=== PATIENT | male | born 1965 | race Caucasian/White ===

== ENCOUNTER 2016-10-20 | Emergency (ER) | payer SELFPAY ==
--- NOTE | 2016-10-20 09:02 | ED ---
ENT HPI - General Chief complaint: ENT Stated complaint: FACIAL INFECTION Time Seen by Provider: 10/20/16 08:34 Source: patient, RN notes reviewed Mode of arrival: ambulatory Limitations: no limitations - History of Present Illness Initial comments: Patient is a 51-year-old male presents to the emergency room for evaluation of left-sided facial edema. Patient states he has a history of left-sided sinusitis. Patient states he has followed up with the ear, nose and throat specialist in this area and in [place]. 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 Patient states this feels like his normal flare up of sinusitis. Patient also complaining of left upper dental pain, which is normal when this happens. Patient denies any recent trauma to his teeth. Patient states he follows up with a dentist regularly. Patient states his symptoms began last night and got worse this morning. Patient denies any fevers. Patient denies shortness of breath. Patient does state he has b/l sinus congestion. Patient denies throat pain, ear pain, headache, cough, abdominal pain, nausea, vomiting. Patient denies any changes in vision. Patient denies ringing ears. Patient states he is usually placed on Levaquin and prednisone. - Related Data Home Medications Medication Instructions Recorded Confirmed Gabapentin [Neurontin] 1 tab PO DIRECTED 03/30/16 10/20/16 Previous Rx's Medication Instructions Recorded Levofloxacin [Levaquin] 500 mg PO DAILY 7 Days 10/20/16 predniSONE 50 mg PO DAILY #5 tab 10/20/16 Allergies Allergy/AdvReac Type Severity Reaction Status Date / Time No Known Allergies Allergy Verified 10/20/16 08:23 Review of Systems ROS Statement: Those systems with pertinent positive or pertinent negative responses have been documented in the HPI. ROS Other: All systems not noted in ROS Statement are negative. Past Medical History Additional Past Medical History / Comment(s): sinus infection, chronic back pain History of Any Multi-Drug Resistant Organisms: None Reported Past Surgical History: Back Surgery Past Psychological History: No Psychological Hx Reported Smoking Status: Never smoker Past Alcohol Use History: None Reported Past Drug Use History: None Reported General Exam - General Exam Comments Initial Comments: Sitting in exam room in no acute distress. Limitations: no limitations General appearance: alert, in no apparent distress Head exam: Present: atraumatic, normocephalic, normal inspection Eye exam: Present: normal appearance ENT exam: Present: other (left sided facial edema, pain on palpating over left maxilary sinus) Neck exam: Present: normal inspection, full ROM. Absent: tenderness, lymphadenopathy Respiratory exam: Present: normal lung sounds bilaterally. Absent: respiratory distress Cardiovascular Exam: Present: regular rate, normal rhythm, normal heart sounds Extremities exam: Present: normal inspection Back exam: Present: normal inspection Neurological exam: Present: alert, oriented X3, CN II-XII intact, normal gait Psychiatric exam: Present: normal affect, normal mood Skin exam: Present: warm, dry, intact, normal color. Absent: rash Course Vital Signs 10/20/16 08:19 Temperature 98.3 F Pulse Rate 73 Respiratory 20 Rate Blood Pressure 149/90 O2 Sat by Pulse 98 Oximetry Medical Decision Making - Medical Decision Making Patient is a 51-year-old male presents emergency room for evaluation of left sided facial edema. Patient states this consistent with his normal flare up of sinusitis. Will place patient on Levaquin and prednisone and have him follow- up with his ear, nose and throat specialist on Saturday or primary care provider. Patient states he understands everything that was discussed with him. Return parameters discussed. Case discussed discussed with Dr. Lang. Disposition Clinical Impression: Maxillary sinusitis Disposition: HOME SELF-CARE Condition: Good Instructions: Sinusitis (ED) Additional Instructions: Take medications as directed. Please follow up with ear, nose and throat specialist or primary care provider in 24-48 hours. If any new symptom arises, symptoms worsen or fever develops, return to ER as soon as possible. Prescriptions: Levofloxacin [Levaquin] 500 mg PO DAILY 7 Days predniSONE 50 mg PO DAILY #5 tab Referrals: Wesley Tovar MD [Primary Care Provider] - 1-2 days Time of Disposition: 08:58
== END 2016-10-20 09:22 | disposition home or self-care (01) ==
CPT/HCPCS: 99283

== ENCOUNTER 2016-11-05 06:53 | Emergency (ER) | payer SELFPAY ==
[2016-11-05 06:58] VITALS: BP 161/85; PULSE 70; RESP 18; TEMP 97.9
--- NOTE | 2016-11-05 07:46 | ED ---
General Adult HPI - General Chief complaint: Skin/Abscess/Foreign Body Stated complaint: sinus infection Time Seen by Provider: 11/05/16 07:20 Source: patient, RN notes reviewed Mode of arrival: ambulatory Limitations: no limitations - History of Present Illness Initial comments: Patient is a pleasant 51-year-old male presenting to the emergency department complaining of sinus discomfort. Symptoms started bothering him a couple of days ago. Patient has chronic frequent problems. Patient usually needs antibiotics for this. Patient states he did feel some swelling in the left sinus region earlier today. Patient does not feel this is from his teeth. Patient has seen ENT for this previously. Patient states he has been off work since Saturday and needs a work note since that time. Patient also requests steroid prescription. - Related Data Home Medications Medication Instructions Recorded Confirmed Ascorbic Acid [Vitamin C] 500 mg PO DAILY 11/05/16 11/05/16 Gabapentin [Neurontin] 300 mg PO TID 11/05/16 11/05/16 Multivitamin [Men's Multi-Vitamin] 1 tab PO DAILY 11/05/16 11/05/16 Naproxen Sodium [Aleve] 440 mg PO Q12HR PRN 11/05/16 11/05/16 Niacin 500 mg PO DAILY 11/05/16 11/05/16 Tadalafil [Cialis] 2.5 mg PO DAILY PRN 11/05/16 11/05/16 Vitamin B Complex 1 cap PO DAILY 11/05/16 11/05/16 Vitamin E 100 unit PO DAILY 11/05/16 11/05/16 amLODIPine BESYLATE [Norvasc] 5 mg PO DAILY 11/05/16 11/05/16 Previous Rx's Medication Instructions Recorded Amoxic-Pot Clav 875-125Mg 1 tab PO Q12HR #20 tablet 11/05/16 [Augmentin 875-125] predniSONE 20 mg PO BID #8 tab 11/05/16 Allergies Allergy/AdvReac Type Severity Reaction Status Date / Time lisinopril AdvReac Swelling Verified 11/05/16 07:26 Review of Systems ROS Statement: Those systems with pertinent positive or pertinent negative responses have been documented in the HPI. ROS Other: All systems not noted in ROS Statement are negative. Constitutional: Denies: fever Eyes: Denies: eye pain ENT: Reports: congestion. Denies: ear pain Respiratory: Reports: cough Cardiovascular: Denies: chest pain Endocrine: Denies: fatigue Gastrointestinal: Denies: abdominal pain Genitourinary: Denies: dysuria Musculoskeletal: Denies: back pain Skin: Denies: rash Neurological: Denies: weakness Past Medical History Additional Past Medical History / Comment(s): sinus infection, chronic back pain History of Any Multi-Drug Resistant Organisms: None Reported Past Surgical History: Back Surgery Additional Past Surgical History / Comment(s): ENT Past Psychological History: No Psychological Hx Reported Smoking Status: Never smoker Past Alcohol Use History: None Reported Past Drug Use History: None Reported General Exam Limitations: no limitations General appearance: alert, in no apparent distress Head exam: Present: atraumatic Eye exam: Present: normal appearance, PERRL ENT exam: Present: normal oropharynx, other (No signs of dental abscess) Neck exam: Present: normal inspection, tenderness (Mild tenderness left sinus region) Respiratory exam: Present: normal lung sounds bilaterally Cardiovascular Exam: Present: regular rate, normal rhythm GI/Abdominal exam: Present: soft. Absent: tenderness Extremities exam: Present: normal inspection Neurological exam: Present: alert, CN II-XII intact. Absent: motor sensory deficit Psychiatric exam: Present: normal affect, normal mood Skin exam: Absent: rash Course Vital Signs 11/05/16 06:54 Temperature 97.9 F Pulse Rate 70 Respiratory 18 Rate Blood Pressure 161/85 O2 Sat by Pulse 97 Oximetry Disposition Clinical Impression: Maxillary sinusitis Disposition: HOME SELF-CARE Condition: Stable Instructions: Sinusitis (ED) Additional Instructions: Please follow-up with primary care physician in the next day or 2 for recheck. Please also follow-up with your ENT. Return for increased swelling, redness, fevers, worsening symptoms or other concerns. Prescriptions: Amoxic-Pot Clav 875-125Mg [Augmentin 875-125] 1 tab PO Q12HR #20 tablet predniSONE 20 mg PO BID #8 tab Referrals: Wesley Tovar MD [Primary Care Provider] - 1-2 days
== END 2016-11-05 07:54 | disposition home or self-care (01) ==
LOC: EC 06:53
DX: J32.0 Chronic maxillary sinusitis (principal); Z79.899 Other long term (current) drug therapy; Z88.8 Allergy status to other drugs, medicaments and biological substances
CPT/HCPCS: 99283

== ENCOUNTER 2017-08-07 17:05 | Emergency (ER) | payer OTHER ==
[2017-08-07 18:21] VITALS: TEMP 97.5
[2017-08-07] MEDS ORDERED: RX INFO: IV CONTRAST WAS GIVEN 1 EACH MISC MISCELLANE PRN (18:45)
[2017-08-07] MEDS ORDERED: ACETAMINOPHEN TAB 325 MG TAB PO STA (18:47)
[2017-08-07 19:17] LABS: Basophils # (A) 0.1 k/uL (0-0.2); Basophils % (A) 1 %; CH 31.2; Eosinophils # (A) 0.1 k/uL (0-0.7); Eosinophils % (A) 1 %; HCT 46.1 % (39.0-53.0); HDW 2.39; HGB 15.6 gm/dL (13.0-17.5); Luc # (Auto) 0.14; Luc % (Auto) 1; Lymphocytes # (A) 2.2 k/uL (1.0-4.8); Lymphocytes % (A) 20 %; MCH 30.4 pg (25.0-35.0); MCHC 33.9 g/dL (31.0-37.0); MCV 89.7 fL (80.0-100.0); Monocytes # (A) 0.5 k/uL (0-1.0); Monocytes % (A) 5 %; Neutrophils # (A) 8.1 k/uL (1.3-7.7); Neutrophils % (A) 73 %; RBC 5.14 m/uL (4.30-5.90); RDW 13.6 % (11.5-15.5); WBC 11.1 k/uL (3.8-10.6); WBC (Perox) 11.02
[2017-08-07 19:19] LABS: Amorphous Sediment,Urine Occasional /hpf; Appearance,Urine Cloudy (Clear); Bilirubin,Urine Negative (Negative); Glucose,Urine (UA) Negative (Negative); Ketones,Urine Negative (Negative); Leukocyte Esterase,Urine Negative (Negative); Mucus,Urine Rare /hpf; Nitrite,Urine Negative (Negative); PH, Urine 6.5 (5.0-8.0); Particle Count 2644; Protein,Urine Negative (Negative); RBC,Urine 1 /hpf (0-5); Specific Gravity,Urine 1.015 (1.001-1.035); Squamous Epithelial Cell,Urine <1 /hpf (0-4); UA Billing (MACRO vs. MICRO) MICRO; Urobilinogen,Urine <2.0 mg/dL (<2.0); WBC,Urine 1 /hpf (0-5)
[2017-08-07 19:27] LABS: ALT 28 U/L (21-72); AST 36 U/L (17-59); Alkaline Phosphatase 83 U/L (38-126); Anion Gap 10 mmol/L; Blood Urea Nitrogen 18 mg/dL (9-20); Calcium 9.3 mg/dL (8.4-10.2); Carbon Dioxide 24 mmol/L (22-30); Chloride 107 mmol/L (98-107); Creatine Kinase 259 U/L (55-170); Glucose 85 mg/dL (74-99); Non-African American GFR(MDRD) >60 (>60 ml/min/1.73 sqM); Potassium 4.1 mmol/L (3.5-5.1); Sodium 141 mmol/L (137-145); Total Bilirubin 0.2 mg/dL (0.2-1.3); Total Protein 7.4 g/dL (6.3-8.2)
--- NOTE | 2017-08-07 19:28 | XR ---
EXAMINATION TYPE: XR knee complete RT DATE OF EXAM: 08/07/2017 COMPARISON: NONE HISTORY: Pain TECHNIQUE: 3 views FINDINGS: I see no fracture nor dislocation. Joint spaces are normal. There is no sign of knee joint effusion. IMPRESSION: Negative right knee exam
--- NOTE | 2017-08-07 19:28 | XR ---
EXAMINATION TYPE: XR Hip RT and AP Pelvis DATE OF EXAM: 08/07/2017 COMPARISON: NONE HISTORY: Pain TECHNIQUE: A single AP view of the pelvis is obtained. Two views of the right hip are obtained. FINDINGS: The pelvic ring is intact. Proximal right femur and hip joint are intact. Sacroiliac joint s are normal. CONCLUSION: Negative pelvis and right hip exam.
[2017-08-07 19:45] VITALS: BP 132/85; PULSE 62; RESP 18
--- NOTE | 2017-08-07 19:54 | CT ---
EXAMINATION TYPE: CT abdomen pelvis w con DATE OF EXAM: 08/07/2017 COMPARISON: NONE HISTORY: Abdominal pain CT DLP: mGycm Automated exposure control for dose reduction was used. TECHNIQUE: Helical acquisition of images was performed from the lung bases through the pelvis. CONTRAST: Omnipaque 100 mL. FINDINGS: There is mild subsegmental atelectasis at the lung bases. There is no pleural effusion. Liver spleen pancreas gallbladder appear normal. Bile ducts are not dilated. There is no adrenal mass. Kidneys have normal size and contour. There is no hydronephrosis. There is no retroperitoneal adenopathy. There is no ascites. Bladder distends smoothly. I see no intestinal wa ll thickening. There are no dilated loops. Appendix appears normal. There is metal artifact from lumb ar spine surgery. I see no compression fracture. There is no evidence of a fracture. IMPRESSION: MILD SUBSEGMENTAL ATELECTASIS AT THE LUNG BASES. NO FRACTURE. NO ACUTE ABNORMALITY OF THE ABDOMEN AND PELVIS.
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
== END 2017-08-07 20:17 | disposition home or self-care (01) ==
LOC: EC 17:05
DX: S80.01XA Contusion of right knee, initial encounter (principal); F17.200 Nicotine dependence, unspecified, uncomplicated; Z79.899 Other long term (current) drug therapy; Z88.8 Allergy status to other drugs, medicaments and biological substances; V03.00XA Pedestrian on foot injured in collision with car, pick-up truck or van in nontraffic accident, initial encounter; Y92.410 Unspecified street and highway as the place of occurrence of the external cause
CPT/HCPCS: 36415; 80053; 82550; 85025; 81001; 73502; 73562; 74177; 99284; Q9967

== ENCOUNTER → 2019-01-28 | Outpatient (CLI) | payer OTHER ==
[2019-01-28 10:04] LABS: Basophils % (A) 1 %; Eosinophils # (A) 0.1 k/uL (0-0.7); Eosinophils % (A) 1 %; HCT 50.1 % (39.0-53.0); HGB 16.4 gm/dL (13.0-17.5); Lymphocytes # (A) 1.8 k/uL (1.0-4.8); Lymphocytes % (A) 25 %; MCH 30.9 pg (25.0-35.0); MCHC 32.8 g/dL (31.0-37.0); MCV 94.2 fL (80.0-100.0); Mean Platelet Volume 6.3; Monocytes # (A) 0.6 k/uL (0-1.0); Monocytes % (A) 8 %; Neutrophils # (A) 4.5 k/uL (1.3-7.7); Neutrophils % (A) 63 %; Platelet Count 314 k/uL (150-450); RBC 5.32 m/uL (4.30-5.90); RDW 13.3 % (11.5-15.5); WBC 7.2 k/uL (3.8-10.6)
[2019-01-28 10:09] LABS: Partial Thromboplastin Time 27.3 sec (22.0-30.0); Prothrombin Time 10.5 sec (9.0-12.0)
[2019-01-28 10:14] LABS: Appearance,Urine Clear (Clear); Bilirubin,Urine Negative (Negative); Blood,Urine Negative (Negative); Color,Urine Yellow; Glucose,Urine (UA) Negative (Negative); Ketones,Urine Negative (Negative); Leukocyte Esterase,Urine Negative (Negative); Nitrite,Urine Negative (Negative); Protein,Urine Negative (Negative); Specific Gravity,Urine 1.012 (1.001-1.035); Urobilinogen,Urine <2.0 mg/dL (<2.0)
[2019-01-28 10:24] LABS: Anion Gap 9 mmol/L; Blood Urea Nitrogen 15 mg/dL (9-20); Calcium 9.6 mg/dL (8.4-10.2); Carbon Dioxide 30 mmol/L (22-30); Chloride 101 mmol/L (98-107); Glucose 90 mg/dL (74-99); Potassium 4.6 mmol/L (3.5-5.1); Sodium 140 mmol/L (137-145)
--- NOTE | 2019-01-28 11:40 | XR ---
EXAMINATION TYPE: XR chest 2V DATE OF EXAM: 01/28/2019 HISTORY: Shortness of breath. COMPARISON: 07/07/2014 TECHNIQUE: Single view of the chest is submitted. FINDINGS: Demonstrated are scattered senescent parenchymal change. There is no evidence for focal infiltrate. The heart is stable. Hilar and mediastinal structures are within normal limits. Degenerative changes are seen of the dorsal spine. IMPRESSION: 1. Chronic changes without evidence for acute pulmonary disease.
== END | disposition home or self-care (01) ==
LOC: LABWHC1 08:42
PROVIDERS: ATTEND Orthopaedic Surgery Orthopaedic Surgery of the Spine
DX: Z01.818 Encounter for other preprocedural examination (principal); Z01.812 Encounter for preprocedural laboratory examination; J98.4 Other disorders of lung; M43.10 Spondylolisthesis, site unspecified
CPT/HCPCS: 36415; 71046; 80048; 81003; 85025; 85610; 85730; 87070

== ENCOUNTER 2019-02-04 08:14 | Inpatient (IN) | payer OTHER ==
[~2019-02-04 08:14] MED LIST: BACITRACIN 50,000 UNIT, POLYMYXIN B 500,000 UNIT in SODIUM CHLORIDE 0.9% IRRIGATIO 1,00... IRRIGATION ONE; DEXAMETHASONE SOD PHOSPHATE 10 MG/ML 1 ML VIAL IV ONE; LIDOCAINE 1% 20 ML VIAL (10MG/ML) FOR IV START INTRADERMA PRN; MIDAZOLAM (PF) 2 MG/2 ML VIAL IV PRN; ONDANSETRON 4 MG/2 ML VIAL IVP ONE; SCOPOLAMINE 1.5MG/72HR PATCH TRANSDERM ONE; ceFAZolin IN SWFI 2 GM/20 ML SYRINGE IVP ONE
[2019-02-04] MEDS: LACTATED RINGERS 1,000 ML IV SCH (09:19)
[2019-02-04] MEDS ORDERED: MIDAZOLAM 2 MG/2 ML VIAL ONE (10:23)
[2019-02-04] MEDS ORDERED: PROPOFOL 10 MG/ML 20 ML VIAL IV ONE (10:23)
[2019-02-04] MEDS ORDERED: DEXAMETHASONE SOD PHOS (MDV) 100 MG/10 ML VIAL ONE (10:23)
[2019-02-04] MEDS ORDERED: ROCURONIUM BROMIDE 10 MG/ML 10 ML VIAL IV ONE (10:23)
[2019-02-04] MEDS ORDERED: KETAMINE 10 MG/ML 20 ML VIAL ONE (10:23)
[2019-02-04] MEDS ORDERED: LIDOCAINE 1% INJ 10MG/ML (20 ML MDV) ONE (10:23)
[2019-02-04] MEDS ORDERED: SUCCINYLCHOLINE CHLORIDE 100 MG/5 ML SYR IV ONE (10:23)
[2019-02-04] MEDS ORDERED: HYDROmorphone (PF) 1 MG/ML ONE (10:23)
[2019-02-04] MEDS ORDERED: fentaNYL (PF) 50 MCG/ML 2 ML AMP ONE (10:23)
[2019-02-04] MEDS ORDERED: GELATIN SPONGE,ABSORB (LARGE) 1 EACH SPONGE MISCELLANE ONE (10:47)
[2019-02-04] MEDS ORDERED: THROMBIN (BOVINE) 5,000 UNIT VIAL MISCELLANE ONE (10:47)
[2019-02-04] MEDS ORDERED: LACTATED RINGERS 1,000 ML IV ONE ×2 (11:00→13:53)
[2019-02-04] MEDS ORDERED: BUPIVACAINE-EPI 0.5%-1:200,000 10 ML VIAL SQ ONE (11:04)
[2019-02-04] MEDS: BACITRACIN 50,000 UNIT, POLYMYXIN B 500,000 UNIT in SODIUM CHLORIDE 0.9% IRRIGATIO 1,00... IRRIGATION ONE ×2 (13:07→13:22)
[2019-02-04] MEDS ORDERED: NALOXONE 0.4 MG/ML 1 ML VIAL IV PRN (14:47)
[2019-02-04] MEDS ORDERED: ONDANSETRON 4 MG/2 ML VIAL IVP PRN (14:47)
[2019-02-04] MEDS ORDERED: MAGNESIUM HYDROXIDE 2,400 MG/10 ML CUP PO PRN (14:47)
[2019-02-04] MEDS ORDERED: BENZOCAINE/MENTHOL LOZENG 1 EACH LOZENGE MUCOUS MEM PRN (14:47)
[2019-02-04] MEDS ORDERED: HYDROcodone/APAP 5-325MG 1 EACH TAB PO PRN ×2 (14:47)
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
[2019-02-04] MEDS ORDERED: PHYSOSTIGMINE SALICYLATE 1 MG/ML 2 ML AMP IVP ONE (15:05)
[2019-02-04] MEDS: HYDROmorphone 0.5 MG/0.5 ML SYRINGE IVP PRN ×6 (15:11→16:15)
--- NOTE | 2019-02-04 15:26 | XR ---
EXAMINATION TYPE: XR lumbar spine 2 or 3V, FL guidance operating room DATE OF EXAM: 02/04/2019 COMPARISON: NONE HISTORY: 53-year-old male hardware placement lumbar spine FINDINGS: Imaging during extension of posterior and interbody lumbar fusion up to the L2 level. FLUOROSCOPY Fluoroscopy time of 13 seconds was used during posterior and interbody lumbar fusion. 2 image/s docu ment/s the procedure. IMPRESSION: Fluoroscopy of the above.
[2019-02-04] MEDS ORDERED: hydrALAZINE HCL 20 MG/ML 1 ML VIAL IV ONE (15:56)
[2019-02-04] MEDS: SODIUM CHLORIDE 0.9% 1,000 ML IV SCH (16:34)
[2019-02-04] MEDS: HYDROmorphone 1 MG/ML 1 ML SYRINGE IVP PRN (17:15)
[2019-02-04] MEDS: HYDROMORPHONE (PF) 10 MG in SODIUM CHLORIDE 0.9% 49 ML IV PRN (17:17)
[2019-02-04] MEDS: ceFAZolin IN SWFI 2 GM/20 ML SYRINGE IVP SCH (17:25)
--- NOTE | 2019-02-04 17:28 | P.CONS ---
History of Present Illness - Reason for Consult Consult date: 02/04/19 Medical management Requesting physician: Miriam Vanegas - Chief Complaint Lower back pain - History of Present Illness 53-year-old male with PMH of spondylolisthesis, spinal stenosis, history of prior decompression and fusion of the L3 4 L4 5 presents to [facility] for elective surgery. Patient was seen and examined after OR. Patient reports 10 out of 10 excruciating lower back pain at the site of surgery. Pain radiates to bilateral knees. He denies any bladder or bowel incontinence, saddle anesthesia. Patient reports no urination or bowel movements since surgery. Not passing gas at this time. Requesting IV pain medication as there is some difficulty with the pain pump. Patient denies any headache, nausea, vomiting, fever, cough, chest pain, palpitations, shortness of breath, dizziness, numbness/weakness/tingling of the extremities. Review of Systems Pertinent positives and negatives as discussed in HPI, a complete review of systems was performed and all other systems are negative. Past Medical History Additional Past Medical History / Comment(s): CHRONIC sinus infectionS, chronic back pain History of Any Multi-Drug Resistant Organisms: None Reported Past Surgical History: Back Surgery Additional Past Surgical History / Comment(s): BACK SX X 2. EYE SX 1984 Past Anesthesia/Blood Transfusion Reactions: No Reported Reaction Smoking Status: Former smoker - Past Family History Mother Family Medical History: No Reported History Medications and Allergies Home Medications Medication Instructions Recorded Confirmed Type Gabapentin [Neurontin] 300 mg PO TID 11/05/16 02/04/19 History Allergies Allergy/AdvReac Type Severity Reaction Status Date / Time lisinopril AdvReac Swelling Verified 02/04/19 15:44 Physical Exam Vitals: Vital Signs Temp Pulse Pulse Resp BP Pulse Ox 02/04/19 16:15 86 18 97 02/04/19 16:00 76 18 176/104 98 02/04/19 15:45 69 16 184/102 95 02/04/19 15:30 62 16 169/109 96 02/04/19 15:15 72 16 170/92 97 02/04/19 15:01 97.8 F 80 15 158/98 100 02/04/19 09:37 72 16 140/78 95 02/04/19 08:55 97.8 F 74 16 140/93 98 Intake and Output 02/04/19 02/04/19 02/04/19 06:59 14:59 22:59 Intake Total 2402 500 Output Total 540 Balance 1862 500 Intake: IV 2402 500 Output: Urine 140 Estimated Blood Loss 400 General: [non toxic], [acute distress], [appears at stated age] Derm: [warm], [dry] Head: [atraumatic], [normocephalic], [symmetric] Eyes: [EOMI], [no lid lag], [anicteric sclera] Mouth: [no lip lesion], [mucus membranes moist] Cardiovascular: [S1S2 reg], [no murmur], [positive DP pulse bilateral] Lungs: [CTA bilateral], [no rhonchi, no rales] , [no accessory muscle use] Abdominal: [soft], [ nontender to palpation], [no guarding], [no appreciable organomegaly] Ext: [no gross muscle atrophy], [no edema], [no contractures] Neuro: [Unable to check strength of bilateral lower extremity due to pain. Sensation intact to touch.] Psych: [Alert], [oriented], [appropriate affect] Assessment and Plan Assessment: Assessment and Plan Elevated BP Spondylolithiasis, spinal stenosis with history of prior decompression and fusion status post laminectomy and decompression POD 0 BP 176/104. Previously on lisinopril. Plan: Insure adequate pain control. Monitor vitals, adjust medications as necessary. Plan: Cefazolin 2 doses. One time dose of dexamethasone. Pain management with Dilaudid AUTOMOTIVE UPHOLSTERER pump. Continue [place] and Dilaudid as needed for pain management. Continue gabapentin. Weightbearing as per orthopedic recommendations. Follow PT and OT recommendations. Thank you for this consult. Please call with any additional questions.
[2019-02-04 17:51] VITALS: BMI 26.1
[2019-02-04] MEDS: GABAPENTIN 300 MG CAP PO SCH ×2 (17:57→21:58)
[2019-02-04] MEDS: DIAZEPAM 5 MG TAB PO PRN (19:47)
[2019-02-05] MEDS: ceFAZolin IN SWFI 2 GM/20 ML SYRINGE IVP SCH (01:11)
[2019-02-05] MEDS: HYDROMORPHONE (PF) 10 MG in SODIUM CHLORIDE 0.9% 49 ML IV PRN ×2 (01:58→13:14)
[2019-02-05] MEDS: DIAZEPAM 5 MG TAB PO PRN ×3 (04:02→21:02)
[2019-02-05 08:33] LABS: Basophils % (A) 0 %; Eosinophils % (A) 0 %; HGB 14.8 gm/dL (13.0-17.5); Lymphocytes # (A) 1.5 k/uL (1.0-4.8); Lymphocytes % (A) 10 %; MCV 93.9 fL (80.0-100.0); Mean Platelet Volume 6.5; Monocytes % (A) 7 %; Neutrophils # (A) 11.6 k/uL (1.3-7.7); Neutrophils % (A) 81 %; Platelet Count 314 k/uL (150-450); RBC 4.79 m/uL (4.30-5.90); RDW 13.4 % (11.5-15.5); WBC 14.2 k/uL (3.8-10.6)
[2019-02-05] MEDS: LACTATED RINGERS 1,000 ML IV SCH (08:39)
[2019-02-05 09:02] LABS: Anion Gap 6 mmol/L; Blood Urea Nitrogen 14 mg/dL (9-20); Calcium 8.5 mg/dL (8.4-10.2); Carbon Dioxide 28 mmol/L (22-30); Chloride 104 mmol/L (98-107); Glucose 82 mg/dL (74-99); Potassium 4.2 mmol/L (3.5-5.1); Sodium 138 mmol/L (137-145)
[2019-02-05] MEDS: GABAPENTIN 300 MG CAP PO SCH ×3 (09:48→21:02)
[2019-02-05] MEDS: SODIUM CHLORIDE 0.9% 1,000 ML IV SCH (09:48)
[2019-02-05] MEDS: SENNOSIDES-DOCUSATE SODIUM 1 EACH TAB PO SCH (09:48)
[2019-02-05] MEDS: HYDROcodone/APAP 5-325MG 1 EACH TAB PO PRN ×3 (09:53→21:41)
--- NOTE | 2019-02-05 11:52 | P.PN ---
Progress Note - Text Progress Note Date: 02/05/19 Orthopedic Spine Patient is a pleasant 53-year-old male who is seen and examined at the bedside following posterior lateral decompression and fusion performed yesterday. Patient states they are doing well postsurgically. He has been able to get out of bed multiple times and ambulate to the restroom to void. He has some difficulty with getting in and out of bed. His back pain is better controlled while standing. He feels his right lower extremity leg pain has improved but does have some exacerbation while lying in bed. He continues to use PATIENT RELATIONS COORDINATOR and oral [place] for pain control. He has been avoiding Dilaudid IV push for pain control. He has had difficulty with sleeping. Currently does not complain of nausea, vomiting, fever, or chills. Patient states pain has been adequately controlled. Patient is eating and voiding freely without difficulty. His Hemovac drain remains intact. Physical Exam Lumbar Fusion: Status post surgical day number 1 Patient is awake, alert, and oriented 3 Vital signs stable Good chest excursion with deep inspiration and expiration Dorsiflexion, plantarflexion, and extensor hallucis longus positive sustained bilaterally No signs or symptoms of DVT; no calf pain; pneumatic cuffs not currently intact bilateral lower extremities Dressing is clean, dry, and intact; no erythema, purulence, or signs of infection Hemovac drain well secure Neurovascularly intact bilaterally lower extremities Assessment: L2-3 open posterior lateral decompression and fusion with transforaminal lumbar interbody fusion with hardware extension to previous fusion at L3-4 and L4-5 Low back pain Right lower extremity radiculopathy L2-3 spondylolisthesis L2-3 adjacent level degenerative disc disease History of previous posterior lateral decompression and fusion L3-4 and L4-5 with transforaminal lumbar interbody fusion History of hypertension Plan: 1. Ambulate as tolerated; work with Physical Therapy to increase mobilization 2. Continue pain control with IV and oral medications; we will continue to avoid IV Dilaudid push and we'll continue with weaning of the PATIENT RELATIONS COORDINATOR in anticipation for discharge home in the next couple days 3. Dressing to remain intact until tomorrow at which time we will plan to discontinue the Hemovac drain and change dressing to nonstick Telfa and Tegaderm 4. Medical management can continue to manage patient for patient's other medical issues 5. We will continue to follow the patient closely; if the patient is able to continue increasing mobility and pain is able to be controlled with oral medications we will plan for discharge home over the next 1-2 days 6. Patient can follow-up with Nic Briones PA-C or Dr. Michael Vanegas at [facility] in 2-3 weeks following discharge
--- NOTE | 2019-02-05 13:14 | P.PN ---
Subjective Progress Note Date: 02/05/19 Principal diagnosis: Post laminectomy and spinal fusion Patient was seen and examined. No acute events overnight. POD 1 today. Patient reports significant improvement in his back pain since starting BRIDGE LEVERMAN pump. He denies chest pain, shortness of breath or palpitations. Ambulating well. Objective - Vital Signs Vital signs: Vital Signs Temp 97.7 F 02/05/19 07:00 Pulse 71 02/05/19 07:00 Resp 18 02/05/19 07:00 BP 121/67 02/05/19 07:00 Pulse Ox 97 02/05/19 07:00 Intake & Output 02/04/19 02/05/19 02/05/19 18:59 06:59 18:59 Intake Total 2902 2570 Output Total 540 460 30 Balance 2362 2110 -30 Intake: IV 2902 Intake, IV Titration 1020 Amount Hydromorphone (Pf) 10 mg 45 In Sodium Chloride 0.9% 49 ml @ As Directed IV PER PROTOCOL PRN Rx#: [id number] Sodium Chloride 0.9% 1, 975 000 ml @ 75 mls/hr IV . [id number] [facility] Rx#:[id number] Oral 1550 Output: Drainage 20 30 Back 20 30 Urine 140 440 Estimated Blood Loss 400 Other: Voiding Method Toilet Toilet Urinal Urinal # Voids 4 - Exam General: [non toxic], [no distress], [appears at stated age] Derm: [warm], [dry] Head: [atraumatic], [normocephalic], [symmetric] Eyes: [EOMI], [no lid lag], [anicteric sclera] Mouth: [no lip lesion], [mucus membranes moist] Cardiovascular: [S1S2 reg], [no murmur], [positive DP pulse bilateral] Lungs: [CTA bilateral], [no rhonchi, no rales] , [no accessory muscle use] Abdominal: [soft], [ nontender to palpation], [no guarding], [no appreciable organomegaly] Ext: [no gross muscle atrophy], [no edema], [no contractures] Neuro: [no focal neuro deficits] Psych: [Alert], [oriented], [appropriate affect] - Labs CBC & Chem 7: 02/05/19 07:30 02/05/19 07:30 Labs: Abnormal Lab Results - Last 24 Hours (Table) 02/05/19 Range/Units 07:30 WBC 14.2 H (3.8-10.6) k/uL Neutrophils # 11.6 H (1.3-7.7) k/uL Assessment and Plan Assessment: Assessment and Plan Elevated BP Leukocytosis Spondylolithiasis, spinal stenosis with history of prior decompression and fusi on status post laminectomy and decompression POD 1 Improved today. BP 176/104. Previously on lisinopril. Plan: Insure adequate pain control. Monitor vitals, adjust medications as necessary. Leukocytosis of 14.2 with neutrophilia. Patient is afebrile. Given cefazolin 2 doses. No signs of infection. Plan: Continue to monitor. Daily CBC. Plan: Cefazolin 2 doses. One time dose of dexamethasone. Pain management with Dilaudid BRIDGE LEVERMAN pump. Continue [place] and Dilaudid as needed for pain management. Continue gabapentin. Weightbearing as per orthopedic recommendations. Follow PT and OT recommendations. Thank you for this consult. Please call with any additional questions.
[2019-02-06 01:43] VITALS: RESP 16
[2019-02-06] MEDS: HYDROMORPHONE (PF) 10 MG in SODIUM CHLORIDE 0.9% 49 ML IV PRN (02:36)
[2019-02-06] MEDS: HYDROcodone/APAP 5-325MG 1 EACH TAB PO PRN ×4 (02:36→20:11)
[2019-02-06] MEDS: DIAZEPAM 5 MG TAB PO PRN ×3 (05:46→22:24)
[2019-02-06] MEDS: LACTATED RINGERS 1,000 ML IV SCH (08:09)
[2019-02-06] MEDS: SODIUM CHLORIDE 0.9% 1,000 ML IV SCH (08:09)
--- NOTE | 2019-02-06 08:33 | P.PN ---
Progress Note - Text Progress Note Date: 02/06/19 Orthopedic Spine: Patient is a pleasant 53-year-old male who is seen and examined at the bedside following posterior lateral decompression and fusion performed Saturday. Patient states he continues to do well and improve postsurgically. He has been able to get out of bed multiple times and ambulate to the restroom to void. He has some difficulty with getting in and out of bed. His back pain is better controlled while standing. He feels his right lower extremity leg pain has continued to improve improved but does have some exacerbation while lying in bed which she feels may be related to muscle. He continues to use SENIOR RESEARCH CONSULTANT and oral [place] for pain control but has been starting to wean off the SENIOR RESEARCH CONSULTANT. He has been avoiding Dilaudid IV push for pain control. Currently does not complain of nausea, vomiting, fever, or chills. Patient states pain has been adequately controlled. Patient is eating and voiding freely without difficulty. His Hemovac drain has been discontinued. He is very happy with his progress postoperatively. He continues to be seen by medicine. He was having increased blood pressure readings yesterday which have improved Physical Exam Lumbar Fusion: Status post surgical day number 2 Patient is awake, alert, and oriented 3 Vital signs stable Good chest excursion with deep inspiration and expiration Dorsiflexion, plantarflexion, and extensor hallucis longus positive sustained bilaterally No signs or symptoms of DVT; no calf pain; pneumatic cuffs not currently intact bilateral lower extremities Dressing is clean, dry, and intact; no erythema, purulence, or signs of infection Hemovac drain previously discontinued Dressing is removed and reapplied with nonstick Telfa and Tegaderm No active drainage from the surgical site No significant pain with palpation over the surgical site Neurovascularly intact bilaterally lower extremities Assessment: L2-3 open posterior lateral decompression and fusion with transforaminal lumbar interbody fusion with hardware extension to previous fusion at L3-4 and L4-5 Low back pain Right lower extremity radiculopathy L2-3 spondylolisthesis L2-3 adjacent level degenerative disc disease History of previous posterior lateral decompression and fusion L3-4 and L4-5 with transforaminal lumbar interbody fusion History of hypertension Plan: 1. Ambulate as tolerated; work with Physical Therapy to increase mobilization 2. Continue pain control with IV and oral medications; we will continue to avoid IV Dilaudid push and will continue with weaning of the SENIOR RESEARCH CONSULTANT in anticipation for discharge home tomorrow, 02/07/2019 MAPS has been reviewed today, 02/06/2019, with an Overall Overdose Risk Score of 120 with a narcotic score of 60. An "Opiod Start Talking" Forn has been signed by the patient and myself in place in the patient's chart. A prescription has been written for [place] 7.5 mg/25 mg take 1-2 tabs every 4 hours as needed for pain, dispensed #84. 3. Dressing has been removed and changed to nonstick Telfa and Tegaderm 4. Medical management can continue to manage patient for patient's other medical issues 5. We will continue to follow the patient closely; if the patient is able to continue increasing mobility and pain is able to be controlled with oral medications we will plan for discharge home tomorrow, 02/07/2019 6. Patient can follow-up with Nic Briones PA-C or Dr. Michael Vanegas at [facility] in 2-3 weeks following discharge
[2019-02-06] MEDS: GABAPENTIN 300 MG CAP PO SCH ×3 (10:01→22:24)
[2019-02-06] MEDS: SENNOSIDES-DOCUSATE SODIUM 1 EACH TAB PO SCH (10:02)
--- NOTE | 2019-02-06 15:21 | P.PN ---
Subjective Progress Note Date: 02/06/19 Principal diagnosis: Status post laminectomy and spinal fusion 53-year-old male postop day 2 status post laminectomy and spinal fusion ambulating with PERSONAL DEVELOPMENT MENTOR pump states this pain is about a 5 out of 10 Objective - Vital Signs Vital signs: Vital Signs Temp 98.5 F 02/06/19 07:00 Pulse 83 02/06/19 08:00 Resp 16 02/06/19 08:00 BP 144/92 02/06/19 07:00 Pulse Ox 97 02/06/19 07:00 Intake & Output 02/05/19 02/06/19 02/06/19 18:59 06:59 18:59 Intake Total 1435 Output Total 75 Balance -75 1435 Intake: Intake, IV Titration 285 Amount Hydromorphone (Pf) 10 mg 45 In Sodium Chloride 0.9% 49 ml @ As Directed IV PER PROTOCOL PRN Rx#: [id number] Sodium Chloride 0.9% 1, 240 000 ml @ 75 mls/hr IV . [id number] REJI Rx#:[id number] Oral 1150 Output: Drainage 75 Back 75 Other: Voiding Method Toilet Toilet Toilet Urinal Urinal Urinal # Voids 4 3 - Constitutional General appearance: Present: no acute distress - Respiratory Respiratory: bilateral: CTA - Cardiovascular Rhythm: regular - Gastrointestinal General gastrointestinal: Present: normal bowel sounds, soft - Integumentary Integumentary Comment(s): Incision dressed clean dry and intact Integumentary: Present: normal turgor - Musculoskeletal Musculoskeletal: Present: strength equal bilaterally - Psychiatric Psychiatric: Present: A&O x's 3, appropriate affect - Labs CBC & Chem 7: 02/05/19 07:30 02/05/19 07:30 Assessment and Plan Assessment: Leukocytosis Hypertension Back pain Plan: Blood pressure better controlled today, currently stable on PERSONAL DEVELOPMENT MENTOR pump continue pain management per primary, monitor for side effects of Dilaudid, check CBC in a.m.,
[2019-02-06] MEDS: HYDROmorphone 0.5 MG/0.5 ML SYRINGE IVP PRN ×2 (16:38→20:11)
[2019-02-06] MEDS: HYDROmorphone 1 MG/ML 1 ML SYRINGE IVP PRN (23:37)
[2019-02-07] MEDS: HYDROcodone/APAP 5-325MG 1 EACH TAB PO PRN ×2 (02:21→09:43)
[2019-02-07] MEDS: HYDROmorphone 1 MG/ML 1 ML SYRINGE IVP PRN (03:50)
[2019-02-07] MEDS: DIAZEPAM 5 MG TAB PO PRN (07:01)
[2019-02-07] MEDS: GABAPENTIN 300 MG CAP PO SCH (07:01)
[2019-02-07] MEDS: SENNOSIDES-DOCUSATE SODIUM 1 EACH TAB PO SCH (07:01)
[2019-02-07 07:41] VITALS: BP 163/96; PULSE 82; TEMP 98.6
[2019-02-07 07:44] LABS: Basophils # (A) 0.1 k/uL (0-0.2); Basophils % (A) 0 %; Eosinophils # (A) 0.1 k/uL (0-0.7); Eosinophils % (A) 1 %; HCT 48.2 % (39.0-53.0); HGB 15.7 gm/dL (13.0-17.5); Lymphocytes # (A) 1.8 k/uL (1.0-4.8); Lymphocytes % (A) 14 %; MCH 30.8 pg (25.0-35.0); MCHC 32.6 g/dL (31.0-37.0); MCV 94.6 fL (80.0-100.0); Monocytes # (A) 0.8 k/uL (0-1.0); Monocytes % (A) 6 %; Neutrophils # (A) 9.5 k/uL (1.3-7.7); Neutrophils % (A) 77 %; Platelet Count 343 k/uL (150-450); RBC 5.09 m/uL (4.30-5.90); RDW 13.2 % (11.5-15.5); WBC 12.4 k/uL (3.8-10.6)
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
[2019-02-07] MEDS: HYDROmorphone 0.5 MG/0.5 ML SYRINGE IVP PRN (08:21)
--- NOTE | 2019-02-07 10:11 | P.PN ---
Subjective Progress Note Date: 02/07/19 Principal diagnosis: back pain Patient is a 54-year-old male past medical history of chronic low back pain, hypertension currently diet controlled, and chronic sinus infections who presented for elective decompression and fusion of L2/3 of the extension of fusion at L2-3. He tolerated the procedure well. Patient seen and examined at bedside. His pain is well controlled. He has been up and ambulating. He is not having any chest pain or shortness of breath. He has had a bowel movement. All questions answered. He is aware that nurse practitioner Tyra Martínez is available [facility]. Information is in place to discharge. Objective - Vital Signs Vital signs: Vital Signs Temp 98.6 F 02/07/19 07:15 Pulse 82 02/07/19 07:15 Resp 16 02/07/19 07:15 BP 163/96 02/07/19 07:15 Pulse Ox 96 02/07/19 07:15 Intake & Output 02/06/19 02/07/19 02/07/19 18:59 06:59 18:59 Intake Total 0 480 Balance 0 480 Intake: Intake, IV Titration 0 Amount Sodium Chloride 0.9% 1, 0 000 ml @ 75 mls/hr IV . [id number] REJI Rx#:[id number] Oral 480 Other: Voiding Method Toilet Toilet Urinal Urinal # Voids 3 3 - Exam General: non toxic, no distress, appears at stated age Derm: warm, dry Head: atraumatic, normocephalic, symmetric Eyes: EOMI, no lid lag, anicteric sclera Mouth: no lip lesion, mucus membranes moist Cardiovascular: S1S2 reg, no murmur, positive posterior tibial pulse bilateral, Lungs: CTA bilateral, no rhonchi, no rales , no accessory muscle use Abdominal: soft, nontender to palpation, no guarding, no appreciable organomegaly Ext: no gross muscle atrophy, no edema, no contractures Neuro: CN II-XI grossly intact, no focal neuro deficits Psych: Alert, oriented, appropriate affect - Labs CBC & Chem 7: 02/07/19 06:52 02/05/19 07:30 Labs: Abnormal Lab Results - Last 24 Hours (Table) 02/07/19 Range/Units 06:52 WBC 12.4 H (3.8-10.6) k/uL Neutrophils # 9.5 H (1.3-7.7) k/uL Assessment and Plan Assessment: HTN - controlled with life style at home - follow BP - improving control Chronic low back pain, s/p Fusion - pain control - PT/OT - increase ambulation Leukocytosis, reactive - decreasing - no need to follow Medically stable for discharge when deemed appropriate per ortho/spine.
== END 2019-02-07 10:30 | disposition home or self-care (01) | DRG 455 ==
LOC: 2ORMAIN 08:14 → 4SSUR 15:48
PROVIDERS: ADMIT Orthopaedic Surgery Orthopaedic Surgery of the Spine; ATTEND Orthopaedic Surgery Orthopaedic Surgery of the Spine
PROC: 0SG0071 Fusion of Lumbar Vertebral Joint with Autologous Tissue Substitute, Posterior Approach, Posterior Column, Open Approach (ICD-10-PCS; 2019-02-04)
PROC: 0ST20ZZ Resection of Lumbar Vertebral Disc, Open Approach (ICD-10-PCS; 2019-02-04)
PROC: 07DS3ZZ Extraction of Vertebral Bone Marrow, Percutaneous Approach (ICD-10-PCS; 2019-02-04)
PROC: 30233N0 Transfusion of Autologous Red Blood Cells into Peripheral Vein, Percutaneous Approach (ICD-10-PCS; 2019-02-04)
PROC: 0SG00AJ Fusion of Lumbar Vertebral Joint with Interbody Fusion Device, Posterior Approach, Anterior Column, Open Approach (ICD-10-PCS; principal; 2019-02-04 09:45)
DX: M43.16 Spondylolisthesis, lumbar region (principal); M51.16 Intervertebral disc disorders with radiculopathy, lumbar region; M48.061 Spinal stenosis, lumbar region without neurogenic claudication; M46.1 Sacroiliitis, not elsewhere classified; I10 Essential (primary) hypertension; Z98.1 Arthrodesis status; Z79.899 Other long term (current) drug therapy; Z82.49 Family history of ischemic heart disease and other diseases of the circulatory system; Z87.891 Personal history of nicotine dependence; Z88.8 Allergy status to other drugs, medicaments and biological substances
CPT/HCPCS: 72100; 80048; 85025; 86850; 86900; 86901

== ENCOUNTER 2019-08-05 23:00 | Emergency (ER) | payer OTHER ==
[2019-08-05] MEDS ORDERED: KETOROLAC 30 MG/ML 1 ML VIAL IM STA (23:33)
[2019-08-05] MEDS ORDERED: AMOXIC-POT CLAV 875MG STARTER 2 EACH TABLET PO STA (23:33)
[2019-08-05] MEDS ORDERED: predniSONE 50 MG TAB PO STA (23:33)
--- NOTE | 2019-08-05 23:35 | ED ---
General Adult HPI - General Chief complaint: Skin/Abscess/Foreign Body Stated complaint: Abscess Time Seen by Provider: 08/05/19 23:18 Source: patient, RN notes reviewed Mode of arrival: ambulatory Limitations: no limitations - History of Present Illness Initial comments: 54-year-old male with chronic sinus infections, chronic back pain presents to the emergency department for a chief complaint of abscess of the left lower jaw. Patient states this started earlier today. States he gets abscesses like this often and it is secondary to his chronic sinus infections. Denies fevers or chills. Denies any dental pain. Patient has no other complaints at this time including shortness of breath, chest pain, abdominal pain, nausea or vomiting, headache, or visual changes. - Related Data Home Medications Medication Instructions Recorded Confirmed Gabapentin [Neurontin] 300 mg PO TID 11/05/16 02/04/19 Previous Rx's Medication Instructions Recorded HYDROcodone/APAP 7.5-325MG [[place] 1 - 2 tab PO Q4HR PRN 7 Days #84 02/06/19 7.5-325] tab Amoxicillin/Potassium Clav 1 tab PO Q12HR #20 tab 08/05/19 [Augmentin 875-125 Tablet] predniSONE 50 mg PO DAILY #4 tab 08/05/19 Allergies Allergy/AdvReac Type Severity Reaction Status Date / Time lisinopril AdvReac Swelling Verified 08/05/19 23:15 Review of Systems ROS Statement: Those systems with pertinent positive or pertinent negative responses have been documented in the HPI. ROS Other: All systems not noted in ROS Statement are negative. Past Medical History Additional Past Medical History / Comment(s): CHRONIC sinus infectionS, chronic back pain History of Any Multi-Drug Resistant Organisms: None Reported Past Surgical History: Back Surgery, Orthopedic Surgery Additional Past Surgical History / Comment(s): BACK SX X 2. EYE SX 1984 Past Anesthesia/Blood Transfusion Reactions: No Reported Reaction Past Psychological History: No Psychological Hx Reported Smoking Status: Former smoker Past Alcohol Use History: None Reported Past Drug Use History: Marijuana - Past Family History Mother Family Medical History: No Reported History General Exam Limitations: no limitations General appearance: alert, in no apparent distress Head exam: Present: atraumatic, normocephalic, normal inspection Eye exam: Present: normal appearance, PERRL, EOMI. Absent: scleral icterus, conjunctival injection, periorbital swelling ENT exam: Present: normal exam, normal oropharynx, mucous membranes moist, TM's normal bilaterally, normal external ear exam, other (Patient has induration about 1 cm by 1 cm noted on the left lower mandible. There is no tenderness to the teeth. There is no drainable dental abscess. No sublingual edema) Neck exam: Present: normal inspection, full ROM. Absent: tenderness, meningismus, lymphadenopathy Respiratory exam: Present: normal lung sounds bilaterally. Absent: respiratory distress, wheezes, rales, rhonchi, stridor Cardiovascular Exam: Present: regular rate, normal rhythm, normal heart sounds. Absent: systolic murmur, diastolic murmur, rubs, gallop, clicks Neurological exam: Present: alert Course Vital Signs 08/05/19 23:12 Temperature 98.2 F Pulse Rate 72 Respiratory 20 Rate Blood Pressure 135/78 O2 Sat by Pulse 97 Oximetry Medical Decision Making - Medical Decision Making Patient presents with induation of the left lower jaw. This is about 1 cm x 1 cm and is mobile. Slightly tender. No erythema. This is likely dental in nature nature however no drainable intraoral abscess. She insists that this is related to chronic sinus infections that he gets similar abscesses often. States he has seen a dentist in the seated is not dental. Patient states he needs antibiotics and is also requesting steroids. Patient will follow up with primary care as well as dentist. He will return if he has any worsening symptoms. Disposition Clinical Impression: Abscess Disposition: HOME SELF-CARE Condition: Good Instructions (If sedation given, give patient instructions): Abscess (ED) Additional Instructions: Please follow up with primary care as well as dentist. Take antibiotic and steroid as directed. This was prescribed to Ayad murcia [employer]. Return to the emergency department if you have any worsening symptoms. Prescriptions: Amoxicillin/Potassium Clav [Augmentin 875-125 Tablet] 1 tab PO Q12HR #20 tab predniSONE 50 mg PO DAILY #4 tab Is patient prescribed a controlled substance at d/c from ED?: No Referrals: Wesley Tovar MD [Primary Care Provider] - 1-2 days Time of Disposition: 23:34
[2019-08-05 23:57] VITALS: BP 136/95; PULSE 67; RESP 18; TEMP 97.6
== END 2019-08-05 23:53 | disposition home or self-care (01) ==
LOC: EC 23:00
DX: M27.2 Inflammatory conditions of jaws (principal); Z79.899 Other long term (current) drug therapy; Z88.8 Allergy status to other drugs, medicaments and biological substances; Z87.891 Personal history of nicotine dependence
CPT/HCPCS: 99282; 96372; J1885; J7512

== ENCOUNTER 2020-04-23 03:15 | Observation (INO) | payer BC, OTHER ==
[2020-04-23] MEDS ORDERED: SODIUM CHLORIDE 0.9% 500 ML 500 ML IV STA (03:34)
[2020-04-23] MEDS ORDERED: DILTIAZEM DRIP BOLUS FROM BAG 1 MG SOLN IV ONE (03:34)
[2020-04-23] MEDS ORDERED: ENOXAPARIN 100 MG/ML SYRINGE SQ STA (03:34)
[2020-04-23] MEDS ORDERED: LORazepam 2 MG/ML INJ IV STA (03:35)
--- NOTE | 2020-04-23 03:40 | ED ---
Arrhythmia/Palpitations HPI - General Chief Complaint: Arrhythmia/Palpitations Stated Complaint: AFib Time Seen by Provider: 04/23/20 03:28 Source: patient Mode of arrival: ambulatory Limitations: no limitations - History of Present Illness Initial Comments: This patient is a 55-year-old man with history of previous paroxysmal atrial fibrillation approximately year and half ago, who states that he woke up to use the bathroom around 2 AM and noticed he was having similar symptoms. He states that he felt his heart beating rapidly and little bit irregularly. He states that he used his apple watch to monitor things and when it did not resolve he decided to present here. He feels a little anxious. He denies other symptoms. Patient denies any predisposing factors, including no alcohol or caffeine use. No street drug use. He states that he has been under little stress recently. MD Complaint: rapid heart beat Onset/Timin -: minutes(s) Context: awoke with symptoms Arrhythmia History: atrial fibrillation Associated Symptoms: anxiety - Related Data Home Medications Medication Instructions Recorded Confirmed Gabapentin [Neurontin] 600 mg PO BID 11/05/16 04/23/20 Previous Rx's Medication Instructions Recorded Apixaban [Eliquis] 5 mg PO BID tab 04/23/20 Aspirin 81 mg PO DAILY chew 04/23/20 Flecainide [Tambocor] 100 mg PO Q12HR #60 tablet 04/23/20 Metoprolol Tartrate [Lopressor] 25 mg PO BID #60 tablet 04/23/20 Allergies Allergy/AdvReac Type Severity Reaction Status Date / Time lisinopril AdvReac Swelling Verified 04/23/20 07:15 Review of Systems ROS Statement: Those systems with pertinent positive or pertinent negative responses have been documented in the HPI. ROS Other: All systems not noted in ROS Statement are negative. Constitutional: Denies: fever, chills Respiratory: Denies: cough, dyspnea Cardiovascular: Reports: palpitations. Denies: chest pain, orthopnea, edema, syncope Gastrointestinal: Denies: abdominal pain, nausea, vomiting, melena, hematochezia Genitourinary: Denies: dysuria, frequency Musculoskeletal: Denies: back pain Skin: Denies: rash Neurological: Denies: headache, weakness, numbness Psychiatric: Reports: anxiety Hematological/Lymphatic: Denies: easy bleeding Past Medical History Past Medical History: Atrial Fibrillation Additional Past Medical History / Comment(s): CHRONIC sinus infectionS, chronic back pain History of Any Multi-Drug Resistant Organisms: None Reported Past Surgical History: Back Surgery, Orthopedic Surgery Additional Past Surgical History / Comment(s): BACK SX X 2. EYE SX 1984 Past Anesthesia/Blood Transfusion Reactions: No Reported Reaction Past Psychological History: No Psychological Hx Reported Past Alcohol Use History: None Reported Past Drug Use History: Marijuana - Past Family History Mother Family Medical History: No Reported History General Exam Limitations: no limitations General appearance: alert, in no apparent distress Head exam: Present: atraumatic, normocephalic Eye exam: Present: normal appearance. Absent: scleral icterus, conjunctival injection ENT exam: Present: normal oropharynx Neck exam: Present: normal inspection Respiratory exam: Present: normal lung sounds bilaterally. Absent: respiratory distress, wheezes, rales, rhonchi, stridor Cardiovascular Exam: Present: tachycardia, irregular rhythm, normal heart sounds. Absent: systolic murmur, diastolic murmur, rubs, gallop GI/Abdominal exam: Present: soft. Absent: distended, tenderness, guarding, rebound, rigid, mass Extremities exam: Present: normal inspection, normal capillary refill. Absent: pedal edema, calf tenderness Back exam: Present: normal inspection Neurological exam: Present: alert Psychiatric exam: Present: anxious Skin exam: Present: warm, dry, intact, normal color. Absent: rash Course Vital Signs 04/23/20 04/23/20 04/23/20 03:21 03:25 03:59 Temperature 97.8 F Pulse Rate 154 H 105 H Pulse Rate [ 151 H Gas Plant Repairer ] Respiratory 18 16 Rate Blood Pressure 185/112 135/111 O2 Sat by Pulse 97 98 Oximetry 04/23/20 04/23/20 04/23/20 04:05 04:10 04:15 Temperature Pulse Rate 133 H 118 H 105 H Pulse Rate [ Gas Plant Repairer ] Respiratory 16 16 16 Rate Blood Pressure 119/93 119/96 107/83 O2 Sat by Pulse 98 97 96 Oximetry 04/23/20 04/23/20 04/23/20 04:53 05:00 06:00 Temperature Pulse Rate 76 86 84 Pulse Rate [ Gas Plant Repairer ] Respiratory 16 16 16 Rate Blood Pressure 115/91 110/89 129/90 O2 Sat by Pulse 99 97 Oximetry 04/23/20 07:36 Temperature 97.8 F Pulse Rate 78 Pulse Rate [ Gas Plant Repairer ] Respiratory 18 Rate Blood Pressure 108/87 O2 Sat by Pulse 97 Oximetry EKG Findings - EKG Results: EKG: interpreted by CHRISTOPHER, normal axis - Dysrhythmias: Supraventricular dysrhythmia: atrial fibrillation (Was rate approximately 139 bpm) - Blocks, [place], Hypertrophy, ST Abn: Chamber hypertrophy or enlargement: only voltage criteria for left ventricular hypertrophy Repolarization changes or abnormalities: nonspecific abnormality, ST segment, an d/or T wave Medical Decision Making - Lab Data Result diagrams: 04/23/20 03:37 04/23/20 03:37 Lab Results 04/23/20 04/23/20 04/23/20 Range/Units 03:37 03:37 03:37 WBC 11.6 H (3.8-10.6) k/uL RBC 5.65 (4.30-5.90) m/uL Hgb 18.0 H (13.0-17.5) gm/dL Hct 53.8 H (39.0-53.0) % MCV 95.2 (80.0-100.0) fL MCH 31.9 (25.0-35.0) pg MCHC 33.5 (31.0-37.0) g/dL RDW 13.1 (11.5-15.5) % Plt Count 324 (150-450) k/uL Neutrophils % 61 % Lymphocytes % 25 % Monocytes % 7 % Eosinophils % 4 % Basophils % 1 % Neutrophils # 7.1 (1.3-7.7) k/uL Lymphocytes # 3.0 (1.0-4.8) k/uL Monocytes # 0.9 (0-1.0) k/uL Eosinophils # 0.4 (0-0.7) k/uL Basophils # 0.1 (0-0.2) k/uL PT 11.2 (9.0-12.0) sec INR 1.1 (<1.2) APTT 26.5 (22.0-30.0) sec Sodium 138 (137-145) mmol/L Potassium 4.2 (3.5-5.1) mmol/L Chloride 103 (98-107) mmol/L Carbon Dioxide 26 (22-30) mmol/L Anion Gap 9 mmol/L BUN 17 (9-20) mg/dL Creatinine 0.86 (0.66-1.25) mg/dL Est GFR (CKD-EPI)AfAm >90 (>60 ml/min/1.73 sqM) Est GFR (CKD-EPI)NonAf >90 (>60 ml/min/1.73 sqM) Glucose 171 H (74-99) mg/dL Estimated Ave Glu mg/dL Hemoglobin A1c (4.0-6.0) % Calcium 9.4 (8.4-10.2) mg/dL Magnesium 1.8 (1.6-2.3) mg/dL Total Bilirubin 0.6 (0.2-1.3) mg/dL AST 47 (17-59) U/L ALT 14 (4-49) U/L Alkaline Phosphatase 87 (38-126) U/L Troponin I (0.000-0.034) ng/mL Total Protein 7.4 (6.3-8.2) g/dL Albumin 4.6 (3.5-5.0) g/dL Triglycerides (<150) mg/dL Cholesterol (<200) mg/dL LDL Cholesterol, Calc (0-99) mg/dL HDL Cholesterol (40-60) mg/dL TSH 4.150 (0.465-4.680) mIU/L 04/23/20 04/23/20 04/23/20 Range/Units 03:37 03:37 03:37 WBC (3.8-10.6) k/uL RBC (4.30-5.90) m/uL Hgb (13.0-17.5) gm/dL Hct (39.0-53.0) % MCV (80.0-100.0) fL MCH (25.0-35.0) pg MCHC (31.0-37.0) g/dL RDW (11.5-15.5) % Plt Count (150-450) k/uL Neutrophils % % Lymphocytes % % Monocytes % % Eosinophils % % Basophils % % Neutrophils # (1.3-7.7) k/uL Lymphocytes # (1.0-4.8) k/uL Monocytes # (0-1.0) k/uL Eosinophils # (0-0.7) k/uL Basophils # (0-0.2) k/uL PT (9.0-12.0) sec INR (<1.2) APTT (22.0-30.0) sec Sodium (137-145) mmol/L Potassium (3.5-5.1) mmol/L Chloride (98-107) mmol/L Carbon Dioxide (22-30) mmol/L Anion Gap mmol/L BUN (9-20) mg/dL Creatinine (0.66-1.25) mg/dL Est GFR (CKD-EPI)AfAm (>60 ml/min/1.73 sqM) Est GFR (CKD-EPI)NonAf (>60 ml/min/1.73 sqM) Glucose (74-99) mg/dL Estimated Ave Glu mg/dL 111 Hemoglobin A1c 5.5 (4.0-6.0) % Calcium (8.4-10.2) mg/dL Magnesium (1.6-2.3) mg/dL Total Bilirubin (0.2-1.3) mg/dL AST (17-59) U/L ALT (4-49) U/L Alkaline Phosphatase (38-126) U/L Troponin I <0.012 (0.000-0.034) ng/mL Total Protein (6.3-8.2) g/dL Albumin (3.5-5.0) g/dL Triglycerides 113 (<150) mg/dL Cholesterol 184 (<200) mg/dL LDL Cholesterol, Calc 125 H (0-99) mg/dL HDL Cholesterol 36 L (40-60) mg/dL TSH (0.465-4.680) mIU/L Critical Care Time Critical Care Time: Yes (35 minutes) Disposition Clinical Impression: Atrial fibrillation Disposition: ADMITTED IP TO THIS HOSP Condition: Good Is patient prescribed a controlled substance at d/c from ED?: No
[2020-04-23] MEDS ORDERED: DILTIAZEM 125 MG in SODIUM CHLORIDE 0.9% 100 ML IV SCH (03:45)
--- NOTE | 2020-04-23 03:47 | XR ---
EXAMINATION TYPE: XR chest 1V portable DATE OF EXAM: 04/23/2020 COMPARISON: January 28, 2019 HISTORY: Dysrhythmia TECHNIQUE: Single view FINDINGS: There is no heart failure nor confluent pneumonic infiltrate. Costophrenic angles are clear . There are chest leads. Bony thorax is intact. IMPRESSION: No active cardiopulmonary disease. No change.
[2020-04-23 03:55] LABS: Basophils # (A) 0.1 k/uL (0-0.2); Basophils % (A) 1 %; Eosinophils # (A) 0.4 k/uL (0-0.7); Eosinophils % (A) 4 %; HCT 53.8 % (39.0-53.0); Lymphocytes % (A) 25 %; MCH 31.9 pg (25.0-35.0); MCHC 33.5 g/dL (31.0-37.0); MCV 95.2 fL (80.0-100.0); Monocytes # (A) 0.9 k/uL (0-1.0); Monocytes % (A) 7 %; Neutrophils # (A) 7.1 k/uL (1.3-7.7); Neutrophils % (A) 61 %; Platelet Count 324 k/uL (150-450); RBC 5.65 m/uL (4.30-5.90); RDW 13.1 % (11.5-15.5); WBC 11.6 k/uL (3.8-10.6)
[2020-04-23 03:59] LABS: INR 1.1 (<1.2); Partial Thromboplastin Time 26.5 sec (22.0-30.0); Prothrombin Time 11.2 sec (9.0-12.0)
[2020-04-23 04:09] LABS: ALT 14 U/L (4-49); AST 47 U/L (17-59); African American GFR (CKD) >90 (>60 ml/min/1.73 sqM); Albumin 4.6 g/dL (3.5-5.0); Alkaline Phosphatase 87 U/L (38-126); Anion Gap 9 mmol/L; Blood Urea Nitrogen 17 mg/dL (9-20); Calcium 9.4 mg/dL (8.4-10.2); Carbon Dioxide 26 mmol/L (22-30); Chloride 103 mmol/L (98-107); Glucose 171 mg/dL (74-99); Magnesium 1.8 mg/dL (1.6-2.3); Non-African American GFR(CKD) >90 (>60 ml/min/1.73 sqM); Potassium 4.2 mmol/L (3.5-5.1); Sodium 138 mmol/L (137-145); Total Bilirubin 0.6 mg/dL (0.2-1.3); Total Protein 7.4 g/dL (6.3-8.2)
[2020-04-23] MEDS ORDERED: FLECAINIDE 50 MG TAB PO ONE (05:00)
[2020-04-23] MEDS ORDERED: NITROGLYCERIN SL TABS 0.4 MG TAB SUBLINGUAL PRN (06:54)
[2020-04-23] MEDS ORDERED: SODIUM CHLORIDE 0.9% 1,000 ML IV SCH (07:00)
[2020-04-23 08:14] VITALS: RESP 16
[2020-04-23] MEDS ORDERED: GABAPENTIN 300 MG CAP PO SCH ×2 (09:00→16:00)
[2020-04-23] MEDS ORDERED: GABAPENTIN 300 MG CAP PO STA (09:33)
[2020-04-23] MEDS ORDERED: ASPIRIN 325 MG TAB PO SCH (10:00)
[2020-04-23] MEDS ORDERED: FLECAINIDE 50 MG TAB PO STA (10:36)
[2020-04-23] MEDS ORDERED: APIXABAN 5 MG TAB PO SCH (10:45)
[2020-04-23 10:57] LABS: Cholesterol 184 mg/dL (<200); HDL Cholesterol 36 mg/dL (40-60); LDL Cholesterol,Calculated 125 mg/dL (0-99); Triglycerides 113 mg/dL (<150)
--- NOTE | 2020-04-23 11:36 | P.HPIM ---
History of Present Illness H&P Date: 04/23/20 Chief Complaint: Palpitations Patient is a 55-year-old male with a significant past medical history of atrial fibrillation and chronic back pain with multiple back surgeries who presents to the ED with palpitations that woke him up in the middle of the night. Patient states that he put on his apple watch which showed that he was in arrhythmia and his heart rate was in the 150s. Patient states that he had a similar episode about a year and half ago where he was found to have atrial fibrillation with RVR. Patient says that however at that time he was not started on any blood thinners because he did not meet the criteria. Patient denies any history of hypertension, heart failure, diabetes, hyperlipidemia. In the ED patient is found to be in A. fib with RVR with heart rate in the 130s. He was started on Cardizem drip. Patient admitted to cardiac obs unit for evaluation by cardiology. Patient currently denies any palpitations. Patient also denies chest pain, nausea vomiting and diarrhea. Review of Systems 10 ROS reviewed and are negative except as noted in HPI Past Medical History Past Medical History: Atrial Fibrillation, Hypertension Additional Past Medical History / Comment(s): CHRONIC sinus infectionS, chronic back pain History of Any Multi-Drug Resistant Organisms: None Reported Past Surgical History: Back Surgery, Orthopedic Surgery Additional Past Surgical History / Comment(s): BACK SX X 2. EYE SX 1984 Past Anesthesia/Blood Transfusion Reactions: No Reported Reaction Past Psychological History: No Psychological Hx Reported Smoking Status: Former smoker Past Alcohol Use History: None Reported Additional Past Alcohol Use History / Comment(s): QUIT SMOKING 2016 Past Drug Use History: Marijuana Additional Drug Use History / Comment(s): MARIJUANA-USES DAILY-INSTRUCTED TO REFRAIN FROM USE FOR AT LEAST 24 HOURS PRIOR TO PROCEDURE - Past Family History Mother Family Medical History: No Reported History Medications and Allergies Home Medications Medication Instructions Recorded Confirmed Type Gabapentin [Neurontin] 600 mg PO BID 11/05/16 04/23/20 History Allergies Allergy/AdvReac Type Severity Reaction Status Date / Time lisinopril AdvReac Swelling Verified 04/23/20 07:15 Physical Exam Osteopathic Statement: *. No significant issues noted on an osteopathic structural exam other than those noted in the History and Physical/Consult. Vitals: Vital Signs Temp Pulse Pulse Resp BP BP Pulse Ox 04/23/20 09:00 72 16 04/23/20 08:11 97.7 F 72 16 135/81 98 04/23/20 07:36 97.8 F 78 18 108/87 97 04/23/20 06:00 84 16 129/90 97 04/23/20 05:00 86 16 110/89 04/23/20 04:53 76 16 115/91 99 04/23/20 04:15 105 H 16 107/83 96 04/23/20 04:10 118 H 16 119/96 97 04/23/20 04:05 133 H 16 119/93 98 04/23/20 03:59 105 H 16 135/111 98 04/23/20 03:25 151 H 04/23/20 03:21 97.8 F 154 H 18 185/112 97 Intake and Output 04/22/20 04/23/20 04/23/20 22:59 06:59 14:59 Intake Total 400 Balance 400 Intake: Oral 400 Other: Weight 88.451 kg 88.451 kg General: [Alert and oriented, well nourished, no acute distress]. Eye: [PERRL, EOMI, normal conjunctiva]. HENT: [Normocephalic, clear tympanic membranes, normal hearing, moist oral mucosa, no scleral icterus, no sinus tenderness]. Neck: [Supple, non-tender, no carotid bruits, no JVD, no lymphadenopathy]. Lungs: [Clear to auscultation and percussion, non-labored respiration]. Heart: [Normal rate, regular rhythm, no murmur, gallop or edema]. Abdomen: [Soft, non-tender, non-distended, normal bowel sounds, no masses]. Musculoskeletal: [Normal range of motion and strength, no tenderness or swelling]. Skin: [Skin is warm, dry and pink, no rashes or lesions]. Neurologic: [Awake, alert, and oriented X3, CN II-XII intact]. Psychiatric: [Cooperative, appropriate mood and affect]. Results CBC & Chem 7: 04/23/20 03:37 04/23/20 03:37 Labs: Abnormal Lab Results - Last 24 Hours (Table) 04/23/20 04/23/20 04/23/20 Range/Units 03:37 03:37 03:37 WBC 11.6 H (3.8-10.6) k/uL Hgb 18.0 H (13.0-17.5) gm/dL Hct 53.8 H (39.0-53.0) % Glucose 171 H (74-99) mg/dL LDL Cholesterol, Calc 125 H (0-99) mg/dL HDL Cholesterol 36 L (40-60) mg/dL Thrombosis Risk Factor Assmnt - Choose All That Apply Any of the Below Risk Factors Present?: No Assessment and Plan Assessment: #Atrial fibrillation with RVR: Titrated on Cardizem drip. Patient started on Eliquis by cardiology. Cardiology on board #Chronic back pain: Resume gabapentin The patient is placed in observation with an anticipated less than 2 midnight stay for evaluation of [atrial fibrillation with RVR]. Surrogate decision-maker: [Son] CODE STATUS:[ Full Code] DVT prophylaxis: [Eliquis]
--- NOTE | 2020-04-23 14:57 | P.DS ---
Providers Date of admission: 04/23/20 07:22 Expected date of discharge: 04/23/20 Attending physician: Chong Bosch MD Consults: 04/23/20 06:54 Consult Physician Urgent Consulting Provider: Mohsen Webb Consult Reason/Comments: atrial fibrillation with RVR Do you want consulting provider notified?: Yes Primary care physician: Wesley Tovar Hospital Course: Discharge Diagnosis: [Atrial fibrillation with RVR] Hospital Course: General examination - Alert and Oriented 3 in NAD Heart - + S1S2 no murmurs Lungs - Clear to auscultation Abdomen soft NT ND +ve BS Extremities - No edema [employer] - Moving all 4 extremities spontaneously Psych - Calm and cooperative A total of [] minutes of time were spent preparing this complex discharge summary . Patient is a 55-year-old male with a significant past medical history of atrial fibrillation and chronic back pain with multiple back surgeries who presents to the ED with palpitations that woke him up in the middle of the night. Patient states that he put on his apple watch which showed that he was in arrhythmia and his heart rate was in the 150s. Patient states that he had a similar episode about a year and half ago where he was found to have atrial fibrillation with RVR. Patient says that however at that time he was not started on any blood thinners because he did not meet the criteria. Patient denies any history of hypertension, heart failure, diabetes, hyperlipidemia. In the ED patient is found to be in A. fib with RVR with heart rate in the 130s. He was started on Cardizem drip. Patient admitted to cardiac obs unit for evaluation by cardiology. Patient currently denies any palpitations. Patient also denies chest pain, nausea vomiting and diarrhea. Patient was seen by cardiology. He was given flecainide after which she spontaneously converted to normal sinus rhythm. Patient was seen by cardiology who recommended to start patient on Eliquis 5mg BID, flecainide 100 mg twice a day and metoprolol 25 mg twice a day. Patient deemed stable for discharge by cardiology. A total of [30] minutes of time were spent preparing this complex discharge summary . Patient Condition at Discharge: Good Plan - Discharge Summary Discharge Rx Participant: No New Discharge Prescriptions: New Aspirin 81 mg PO DAILY chew Apixaban [Eliquis] 5 mg PO BID tab Metoprolol Tartrate [Lopressor] 25 mg PO BID #60 tablet Flecainide [Tambocor] 100 mg PO Q12HR #60 tablet Continue Gabapentin [Neurontin] 600 mg PO BID Discharge Medication List Gabapentin [Neurontin] 600 mg PO BID 11/05/16 [History] Apixaban [Eliquis] 5 mg PO BID tab 04/23/20 [Rx] Aspirin 81 mg PO DAILY chew 04/23/20 [Rx] Flecainide [Tambocor] 100 mg PO Q12HR #60 tablet 04/23/20 [Rx] Metoprolol Tartrate [Lopressor] 25 mg PO BID #60 tablet 04/23/20 [Rx] Follow up Appointment(s)/Referral(s): Wesley Tovar MD [Primary Care Provider] - 1-2 days Mohsen Webb MD [STAFF PHYSICIAN] - 2 Weeks Discharge Disposition: HOME SELF-CARE
--- NOTE | 2020-04-23 15:00 | P.CRDCN ---
History of Present Illness History of present illness: This is Dr. Webb dictating a consult on this patient The patient was interviewed and examined IMPRESSION / ASSESSMENT: Paroxysmal atrial fibrillation, second episode. This one started 2 AM in the morning. The first one started around 8:00 in the morning First episode would spontaneously Patient received flecainide and Lovenox in the ER but by this time I saw him in the observation unit he was still in A. fib He received an extra dose of flecainide 150 mg by mouth Chemical conversion within a few hours sinus rhythm Postconversion ECG is normal with normal ST segments ELIQUIS and also been initiated by me Elevated LDL, low HDL despite exercising regularly Elevated glucose level hemoglobin A1c pending PLAN: Ambulate in the hallways If stable he may go home Continue flecainide 100 mg twice daily Metoprolol 25 mg twice daily Discontinue IV Cardizem Short-term ELIQUIS So far his ANTONIA VASC score is 0 I will see him in the office within a week Twelve-lead EKG at that time Further cardiac workup thereafter HPI Patient presented with palpitations that woke him up from sleep at 2 AM He's had a history of atrial fibrillation once before and he recognizes symptoms. He was a bit short of breath but he was complaining of palpitations. He'll anxious but no loss of consciousness He has been under a considerable amount of stress after his father recently ROS: No fever chills or rigors, no cough, phlegm or expectoration, no nausea, vomiting or diarrhea, no hematuria, dysuria, no musculoskeletal complaints, no strokes or seizures, no skin lesions. EXAMINATION: Resting comfortably in bed, in atrial fibrillation on IV Cardizem. Ventricular rates in the 80s to 90s Afebrile 97.7F Breath sounds are clear no rhonchi no crackles Heart sounds are normal but irregular normal S1 normal S2 Abdomen soft nontender Extremities are warm no edema REVIEW OF LABS, ECG & MEDICAL DATA ALLERGY to lisinopril, swelling No history of diabetes, history of hypertension but he lost a lot of weight and Dr. Tovar stopped his blood pressure medications History of atrial fibrillation with spontaneous conversion Denies any other medical problems Sodium 138 potassium 4.2 BUN 17 creatinine 0.86 3 normal troponins Elevated glucose of 171 LDL 125, HDL 36 Normal TSH of 4.1, total. 184, triglycerides 113 Hemoglobin A1c pending Past Medical History Past Medical History: Atrial Fibrillation, Hypertension Additional Past Medical History / Comment(s): CHRONIC sinus infectionS, chronic back pain History of Any Multi-Drug Resistant Organisms: None Reported Past Surgical History: Back Surgery, Orthopedic Surgery Additional Past Surgical History / Comment(s): BACK SX X 2. EYE SX 1984 Past Anesthesia/Blood Transfusion Reactions: No Reported Reaction Past Psychological History: No Psychological Hx Reported Smoking Status: Former smoker Past Alcohol Use History: None Reported Additional Past Alcohol Use History / Comment(s): QUIT SMOKING 2016 Past Drug Use History: Marijuana Additional Drug Use History / Comment(s): MARIJUANA-USES DAILY-INSTRUCTED TO REFRAIN FROM USE FOR AT LEAST 24 HOURS PRIOR TO PROCEDURE - Past Family History Mother Family Medical History: No Reported History Medications and Allergies Home Medications Medication Instructions Recorded Confirmed Type RX: Gabapentin [Neurontin] 600 mg PO BID 11/05/16 04/23/20 History RX: Apixaban [Eliquis] 5 mg PO BID tab 04/23/20 Rx RX: Aspirin 81 mg PO DAILY chew 04/23/20 Rx RX: Flecainide [Tambocor] 100 mg PO Q12HR #60 tablet 04/23/20 Rx RX: Metoprolol Tartrate [Lopressor] 25 mg PO BID #60 tablet 04/23/20 Rx Allergies Allergy/AdvReac Type Severity Reaction Status Date / Time lisinopril AdvReac Swelling Verified 04/23/20 07:15 Physical Exam Vitals: Vital Signs Temp Pulse Pulse Resp BP BP Pulse Ox 04/23/20 09:00 72 16 04/23/20 08:11 97.7 F 72 16 135/81 98 04/23/20 07:36 97.8 F 78 18 108/87 97 04/23/20 06:00 84 16 129/90 97 04/23/20 05:00 86 16 110/89 04/23/20 04:53 76 16 115/91 99 04/23/20 04:15 105 H 16 107/83 96 04/23/20 04:10 118 H 16 119/96 97 04/23/20 04:05 133 H 16 119/93 98 04/23/20 03:59 105 H 16 135/111 98 04/23/20 03:25 151 H 04/23/20 03:21 97.8 F 154 H 18 185/112 97 Intake and Output 04/23/20 04/23/20 04/23/20 06:59 14:59 22:59 Intake Total 400 Balance 400 Intake: Oral 400 Other: Weight 88.451 kg 88.451 kg Results 04/23/20 03:37 04/23/20 03:37 Cardiac Enzymes 04/23/20 04/23/20 04/23/20 Range/Units 03:37 03:37 08:35 AST 47 (17-59) U/L Troponin I <0.012 <0.012 (0.000-0.034) ng/mL 04/23/20 Range/Units 11:19 AST (17-59) U/L Troponin I <0.012 (0.000-0.034) ng/mL Coagulation 04/23/20 Range/Units 03:37 PT 11.2 (9.0-12.0) sec APTT 26.5 (22.0-30.0) sec Lipids 04/23/20 Range/Units 03:37 Triglycerides 113 (<150) mg/dL Cholesterol 184 (<200) mg/dL HDL Cholesterol 36 L (40-60) mg/dL CBC 04/23/20 Range/Units 03:37 WBC 11.6 H (3.8-10.6) k/uL RBC 5.65 (4.30-5.90) m/uL Hgb 18.0 H (13.0-17.5) gm/dL Hct 53.8 H (39.0-53.0) % Plt Count 324 (150-450) k/uL Comprehensive Metabolic Panel 04/23/20 Range/Units 03:37 Sodium 138 (137-145) mmol/L Potassium 4.2 (3.5-5.1) mmol/L Chloride 103 (98-107) mmol/L Carbon Dioxide 26 (22-30) mmol/L BUN 17 (9-20) mg/dL Creatinine 0.86 (0.66-1.25) mg/dL Glucose 171 H (74-99) mg/dL Calcium 9.4 (8.4-10.2) mg/dL AST 47 (17-59) U/L ALT 14 (4-49) U/L Alkaline Phosphatase 87 (38-126) U/L Total Protein 7.4 (6.3-8.2) g/dL Albumin 4.6 (3.5-5.0) g/dL Current Medications Generic Name Dose Route Start Last Admin Trade Name Freq PRN Reason Stop Dose Admin Apixaban 5 mg 04/23/20 10:45 04/23/20 11:03 Eliquis PO 5 mg BID REJI Administration Aspirin 81 mg 04/24/20 09:00 Aspirin PO DAILY REJI Gabapentin 600 mg 04/23/20 16:00 Neurontin PO TID REJI Diltiazem HCl 125 mg/ Sodium 125 mls @ 5 mls/hr 04/23/20 03:45 04/23/20 04:04 Chloride IV 5 mg/hr .Q24H REJI 5 mls/hr Administration 5 MG/HR Sodium Chloride 1,000 mls @ 20 mls/hr 04/23/20 07:00 04/23/20 07:45 Saline 0.9% IV 20 mls/hr .Q24H REJI Administration Nitroglycerin 0.4 mg 04/23/20 06:54 Nitrostat SUBLINGUAL Q5M PRN Chest Pain Intake and Output 04/23/20 04/23/20 04/23/20 06:59 14:59 22:59 Intake Total 400 Balance 400 Intake: Oral 400 Other: Weight 88.451 kg 88.451 kg Patient Weight 04/24/20 06:59 Weight 88.451 kg 04/23/20 03:37 04/23/20 03:37
[2020-04-23 15:36] VITALS: BP 144/87; PULSE 60; TEMP 97.8
[2020-04-23 18:20] LABS: Hemoglobin A1C 5.5 % (4.0-6.0)
[2020-04-24] MEDS ORDERED: ASPIRIN 81 MG PO SCH (09:00)
== END 2020-04-23 15:50 | disposition home or self-care (01) ==
LOC: EC 03:15 → 3NCARDOBS 07:22
PROVIDERS: ADMIT Internal Medicine; ATTEND Internal Medicine
DX: I48.0 Paroxysmal atrial fibrillation (principal); I11.0 Hypertensive heart disease with heart failure; I50.9 Heart failure, unspecified; E11.9 Type 2 diabetes mellitus without complications; G89.29 Other chronic pain; M54.9 Dorsalgia, unspecified; E78.5 Hyperlipidemia, unspecified; Z98.890 Other specified postprocedural states; Z87.891 Personal history of nicotine dependence; Z88.8 Allergy status to other drugs, medicaments and biological substances; Z79.899 Other long term (current) drug therapy
CPT/HCPCS: 93005 ×2; 96372; 96374; 96375; 99291; 36415; 80053; 80061; 83735; 84443; 84484; 85025; 85610; 85730; 83036; 71045; G0378; U0003; J2060; J1650

== ENCOUNTER → 2020-05-26 | Outpatient (CLI) | payer OTHER ==
--- NOTE | 2020-05-26 20:29 | CONS ---
CONSULTATION DATE OF SERVICE: 05/26/2020 This patient is a 55-year-old gentleman who has been evaluated in the sleep center for possible obstructive sleep apnea-hypopnea syndrome. HISTORY OF PRESENT ILLNESS/SLEEP-WAKE EVALUATION: Patient's usual sleep schedule is from 9 or 10 p.m. until 3 or 4 a.m. He does not have any problem with falling asleep, according to him, although he has a TV set in the bedroom. He usually sleeps on the side position. He snores; according to his family, he has had episodes of choking during sleep and possibly stopped breathing during sleep before. He wakes up from sleep 2 times with nocturia. He moves during the night, changing his position from side to side. In the morning he wakes up tired, has problems with concentration and irritability. He falls asleep during the day. Cleves Sleepiness Scale is significantly increased at 13. During the day he may take 1-2 naps, usually at noon time. He feels refreshed after naps. He does not see vivid dreams during naps. No history of hypnagogic hallucinations, sleep paralysis or cataplexy. He drinks up to 4 caffeinated beverage during the day. Cleves Sleepiness Scale significantly increased at 13. PAST MEDICAL HISTORY: Positive for several episodes of atrial fibrillation. PAST SURGICAL HISTORY: Eye surgery, multiple surgeries on the spine with C3-C7 fusion, L3-S1 fusion, L2-L3 fusion. MEDICATIONS: Gabapentin, flecainide. SOCIAL HISTORY: Positive for smoking; quit 3 years ago using nicotine gum. History of ETOH overuse in the past. FAMILY HISTORY: Hypertension. REVIEW OF SYSTEMS: Awakenings from sleep, sleepiness during the day. PHYSICAL EXAMINATION: GENERAL: A pleasant 55-year-old gentleman without distress. VITAL SIGNS: BP 121/86, HR 72, RR 15, height 5 feet 10-1/2 inches, weight 192.2 pounds, temperature 99.1, oxygen saturation at room air 96%. HEENT: PERRLA, EOMI. Evaluation of oropharynx showed tongue protrudes midline. Moderately low position of soft palate. Mallampati III. NECK: Supple. No JVD. Thyroid is not palpable. Neck is wide; 17 inches in circumference. LUNGS: Clear to percussion and to auscultation. Good air exchange. No wheezing or rhonchi. HEART: S1, S2 regular. No murmurs, gallops or rubs. ABDOMEN: Soft and nontender. Bowel sounds are present. No organomegaly. EXTREMITIES: No clubbing or cyanosis. [employer]: Awake, alert, and oriented X3. Cranial nerves 2 to 7 intact. There is no fasciculation or atrophy. noted. No focal deficits observed. IMPRESSION: 1. Snoring, history of witnessed episodes of choking and stopped breathing in the past, moderately low soft palate, wide neck, sleepiness, Cleves Sleepiness Scale increased to 13; obstructive sleep apnea-hypopnea syndrome. 2. History of several episodes of atrial fibrillation. 3. Status post multiple spine surgeries for fusion on the levels C3- C7, L3-S1, L2-L3, last surgery in 2019. 4. Status post eye surgery in 1983. 5. History of recovering from ETOH overuse in the past. PLAN: 1. Patient will continue to use PAP equipment every night for the whole night. 2. Sleep hygiene with regular time in bed for at least 7-1/2 to 8 hours. 3. Precautions related to driving. No driving if feeling sleepiness. 4. I will maintain all necessary prescription for PAP supplies including mask, tube, filters. 5. Watching weight. 6. No driving if feeling sleepiness. 7. Follow-up visit in 6 months or earlier if patient has any problems. Thank you very much for referring this patient for consultation. Sincerely, Jose Lock MD, PhD, FAASM Diplomat of [employer] Editor Publications of [facility] [place] MMODL / IJN: [id number] /
== END | disposition home or self-care (01) ==
LOC: SLEEP 16:42
PROVIDERS: ATTEND Internal Medicine
DX: G47.33 Obstructive sleep apnea (adult) (pediatric) (principal); Z86.79 Personal history of other diseases of the circulatory system; Z98.890 Other specified postprocedural states; Z98.1 Arthrodesis status
CPT/HCPCS: 99211

== ENCOUNTER 2020-08-09 09:56 | Emergency (ER) | payer OTHER ==
[2020-08-09 11:51] VITALS: BP 138/86; PULSE 74; TEMP 98.9
--- NOTE | 2020-08-09 12:13 | ED ---
General Adult HPI - General Chief complaint: Upper Respiratory Infection Stated complaint: Sinus infection Time Seen by Provider: 08/09/20 11:53 Source: patient, RN notes reviewed, old records reviewed Mode of arrival: ambulatory Limitations: no limitations - History of Present Illness Initial comments: 55-year-old male presenting for evaluation of cough and URI symptoms which been going on for approximately one month. He has a history of sinusitis however he states this is somewhat different. He's had a productive cough some mild chest tightness associated with his cough. No chest pain. No abdominal pain nausea vomiting. He is concerned that he may have coronavirus. He denies fever. Denies lower extremity pain or swelling. - Related Data Home Medications Medication Instructions Recorded Confirmed Gabapentin [Neurontin] 600 mg PO BID 11/05/16 04/23/20 Previous Rx's Medication Instructions Recorded Apixaban [Eliquis] 5 mg PO BID tab 04/23/20 Aspirin 81 mg PO DAILY chew 04/23/20 Flecainide [Tambocor] 100 mg PO Q12HR #60 tablet 04/23/20 Metoprolol Tartrate [Lopressor] 25 mg PO BID #60 tablet 04/23/20 Amoxic-Pot Clav 875-125Mg 1 tab PO BID 10 Days #20 tab 08/09/20 [Augmentin 875-125] methylPREDNISolone Dose Pack 4 mg PO DIRECTED #21 package 08/09/20 [Medrol Dose Pack] Allergies Allergy/AdvReac Type Severity Reaction Status Date / Time lisinopril AdvReac Swelling Verified 08/09/20 10:01 Review of Systems ROS Statement: Those systems with pertinent positive or pertinent negative responses have been documented in the HPI. ROS Other: All systems not noted in ROS Statement are negative. Past Medical History Past Medical History: Atrial Fibrillation Additional Past Medical History / Comment(s): CHRONIC sinus infectionS, chronic back pain History of Any Multi-Drug Resistant Organisms: None Reported Past Surgical History: Back Surgery, Orthopedic Surgery Additional Past Surgical History / Comment(s): BACK SX X 2. EYE SX 1984 Past Anesthesia/Blood Transfusion Reactions: No Reported Reaction Past Psychological History: No Psychological Hx Reported Smoking Status: Former smoker Past Alcohol Use History: None Reported Past Drug Use History: Marijuana - Past Family History Mother Family Medical History: No Reported History General Exam Limitations: no limitations General appearance: alert, in no apparent distress Head exam: Present: atraumatic, normocephalic Eye exam: Present: normal appearance, PERRL ENT exam: Present: normal exam Neck exam: Present: normal inspection. Absent: tenderness, meningismus Respiratory exam: Present: normal lung sounds bilaterally. Absent: respiratory distress, wheezes, rales, rhonchi Cardiovascular Exam: Present: regular rate, normal rhythm GI/Abdominal exam: Present: soft. Absent: distended, tenderness, guarding Extremities exam: Present: normal inspection, normal capillary refill. Absent: pedal edema, calf tenderness Neurological exam: Present: alert, oriented X3, CN II-XII intact. Absent: motor sensory deficit Psychiatric exam: Present: normal affect, normal mood Skin exam: Present: warm, dry, intact. Absent: cyanosis, diaphoretic Course Vital Signs 08/09/20 08/09/20 08/09/20 09:57 11:50 12:28 Temperature 98.2 F 98.9 F Pulse Rate 70 74 Respiratory 18 20 18 Rate Blood Pressure 138/81 138/86 O2 Sat by Pulse 97 98 Oximetry Medical Decision Making - Medical Decision Making 55-year-old male with nearly one month of cough and URI symptoms. Patient well- appearing, lungs are clear, x-rays negative for focal pneumonia. I suspect this is an ongoing bronchitis. His rapid coronavirus test is negative. He will be prescribed a azithromycin and Medrol Dosepak. He will follow with his primary care physician. - Lab Data Lab Results 08/09/20 Range/Units 12:40 Coronavirus (PCR) Not Detected (Not Detectd) Disposition Clinical Impression: Bronchitis Disposition: HOME SELF-CARE Condition: Good Instructions (If sedation given, give patient instructions): Upper Respiratory Infection (ED), Acute Bronchitis (ED) Prescriptions: Amoxic-Pot Clav 875-125Mg [Augmentin 875-125] 1 tab PO BID 10 Days #20 tab methylPREDNISolone Dose Pack [Medrol Dose Pack] 4 mg PO DIRECTED #21 package Is patient prescribed a controlled substance at d/c from ED?: No Referrals: Wesley Tovar MD [Primary Care Provider] - 1-2 days Time of Disposition: 13:28
[2020-08-09 12:29] VITALS: RESP 18
--- NOTE | 2020-08-09 12:55 | XR ---
EXAMINATION TYPE: XR chest 1V portable DATE OF EXAM: 08/09/2020 HISTORY: Shortness of breath. COMPARISON: 04/23/2020 TECHNIQUE: Single view of the chest is submitted. FINDINGS: Demonstrated are scattered senescent parenchymal change. There is no evidence for focal infiltrate. The heart is stable. Hilar and mediastinal structures are within normal limits. Degenerative changes are seen of the dorsal spine. IMPRESSION: 1. Chronic changes without evidence for acute pulmonary disease.
== END 2020-08-09 13:31 | disposition home or self-care (01) ==
LOC: EC 09:56
DX: J40 Bronchitis, not specified as acute or chronic (principal); Z79.899 Other long term (current) drug therapy; Z88.8 Allergy status to other drugs, medicaments and biological substances; Z87.891 Personal history of nicotine dependence; Z20.828 Contact with and (suspected) exposure to other viral communicable diseases
CPT/HCPCS: 71045; 87635; 99284

== ENCOUNTER 2020-11-16 11:08 | Emergency (ER) | payer OTHER ==
--- NOTE | 2020-11-16 11:26 | ED ---
ENT HPI - General Source: patient Mode of arrival: ambulatory <Anand Moreno - Last Filed: 11/16/20 11:45> <Lizet Roberts - Last Filed: 11/16/20 21:47> - General Chief complaint: ENT Stated complaint: Ear pain Time Seen by Provider: 11/16/20 11:15 - History of Present Illness Initial comments: 55-year-old male presents to the emergency room with chief complaint of ear pain. Patient reports pain started about 3 days ago and is gradually increasing severity. States the pain is located in bilateral ears, more left versus right. States urine has "about 50% hearing loss in bilateral ears and was recently fitted for hearing aids". 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 He denies any discharge from the left ear. Denies any fevers or chills or swelling behind the left ear. No history of diabetes. States the pain is exacerbatedwhen pulling on the year. (Anand Lee) - Related Data Home Medications Medication Instructions Recorded Confirmed Gabapentin [Neurontin] 600 mg PO BID 11/05/16 04/23/20 Previous Rx's Medication Instructions Recorded Apixaban [Eliquis] 5 mg PO BID tab 04/23/20 Aspirin 81 mg PO DAILY chew 04/23/20 Flecainide [Tambocor] 100 mg PO Q12HR #60 tablet 04/23/20 Metoprolol Tartrate [Lopressor] 25 mg PO BID #60 tablet 04/23/20 Amoxic-Pot Clav 875-125Mg 1 tab PO BID 10 Days #20 tab 08/09/20 [Augmentin 875-125] methylPREDNISolone Dose Pack 4 mg PO DIRECTED #21 package 08/09/20 [Medrol Dose Pack] Imffqwhy-Yrvencuqq-Pq Otic 2 drops LEFT EAR TID #1 bottle 11/16/20 [Cortisporin Otic Soln] Allergies Allergy/AdvReac Type Severity Reaction Status Date / Time lisinopril AdvReac Swelling Verified 08/09/20 10:01 Review of Systems ROS Other: All systems not noted in ROS Statement are negative. <Anand Moreno - Last Filed: 11/16/20 11:45> ROS Other: All systems not noted in ROS Statement are negative. <Lizet Roberts - Last Filed: 11/16/20 21:47> ROS Statement: Those systems with pertinent positive or pertinent negative responses have been documented in the HPI. Past Medical History Past Medical History: Atrial Fibrillation Additional Past Medical History / Comment(s): CHRONIC sinus infectionS, chronic back pain History of Any Multi-Drug Resistant Organisms: None Reported Past Surgical History: Back Surgery, Orthopedic Surgery Additional Past Surgical History / Comment(s): BACK SX X 2. EYE SX 1984 Past Anesthesia/Blood Transfusion Reactions: No Reported Reaction Past Psychological History: No Psychological Hx Reported Smoking Status: Former smoker Past Alcohol Use History: None Reported Past Drug Use History: Marijuana - Past Family History Mother Family Medical History: No Reported History <Anand Moreno - Last Filed: 11/16/20 11:45> General Exam Limitations: no limitations General appearance: alert, in no apparent distress Head exam: Present: atraumatic, normocephalic, normal inspection Eye exam: Present: normal appearance, PERRL, EOMI Pupils: Present: normal accommodation ENT exam: Present: normal exam, normal oropharynx, mucous membranes moist, TM's normal bilaterally, other (pain when pulling on the left auricle. No erythema, swelling around the mastoid.). Absent: normal external ear exam (slightly edematous left external auditory canal. Unable to fully visualize left tympanic membrane due to cerumen impaction.) Neck exam: Present: normal inspection, full ROM. Absent: tenderness Respiratory exam: Present: normal lung sounds bilaterally. Absent: respiratory distress Cardiovascular Exam: Present: regular rate, normal rhythm, normal heart sounds Extremities exam: Present: normal inspection, full ROM, normal capillary refill. Absent: tenderness, pedal edema, joint swelling Back exam: Present: normal inspection, full ROM Neurological exam: Present: alert, oriented X3 Psychiatric exam: Present: normal affect, normal mood Skin exam: Present: warm, dry, intact, normal color, rash (circular lesions on bilateral upper extremities.) <Anand Moreno - Last Filed: 11/16/20 11:45> Course Vital Signs 11/16/20 11/16/20 11:15 11:29 Temperature 99.2 F Pulse Rate 74 Respiratory 13 Rate Blood Pressure 141/110 157/106 O2 Sat by Pulse 96 Oximetry Medical Decision Making <Anand Moreno - Last Filed: 11/16/20 11:45> <Lizet Roberts - Last Filed: 11/16/20 21:47> - Medical Decision Making 55-year-old male presents emergency Department with chief complaint of ear pain. On physical examination, this appears to be otitis externa. No concern for malignant otitis externa or mastoiditis. He is not diabetic. Patient will be treated with otic drops. He also has skin lesions on bilateral upper extremities which he states they are red and warm and is currently being treated for them. Strict return parameters thoroughly discussed the patient was understanding and agreeable. Urine has an appointment scheduled for Saturday to see his ENT specialist. Case discussed with Dr roberts (Anand Moreno) I was available for consultation in the emergency department. The history and physical exam were done by the midlevel provider. I was consulted for this patients care. I reviewed the case with the midlevel provider and based on their presentation of the patient, I agree with the assessment, medical decision making and plan of care as documented. Chart was dictated using [employer] dictation software. Attempts were made to correct any dictation errors however some typographical errors may persist. Patient was seen during a national state of emergency due to the Covid-19 pandemic. (Lizet Roberts) Disposition Is patient prescribed a controlled substance at d/c from ED?: No Time of Disposition: 11:43 <Anand Moreno - Last Filed: 11/16/20 11:45> <Lizet Roberts - Last Filed: 11/16/20 21:47> Clinical Impression: Otitis externa, left Disposition: HOME SELF-CARE Condition: Stable Instructions (If sedation given, give patient instructions): Earache (ED) Additional Instructions: take prescribed medication as directed. Follow-up with your ENT specialist.Please return to the Emergency Department if symptoms worsen or any other concerns. Prescriptions: Ieejeekl-Bjxinfomy-Bk Otic [Cortisporin Otic Soln] 2 drops LEFT EAR TID #1 bottle Referrals: Sly Roman MD [Primary Care Provider] - 1-2 days
[2020-11-16 11:27] VITALS: PULSE 74; RESP 13; TEMP 99.2
[2020-11-16 11:31] VITALS: BP 157/106
== END 2020-11-16 11:51 | disposition home or self-care (01) ==
LOC: EC 11:08
DX: H60.92 Unspecified otitis externa, left ear (principal); L98.8 Other specified disorders of the skin and subcutaneous tissue; Z79.899 Other long term (current) drug therapy; Z88.8 Allergy status to other drugs, medicaments and biological substances; Z87.891 Personal history of nicotine dependence
CPT/HCPCS: 99282

== ENCOUNTER 2021-06-23 11:53 | Emergency (ER) | payer OTHER ==
[2021-06-23 12:11] VITALS: BP 151/93; PULSE 82; RESP 20; TEMP 98.4
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
== END 2021-06-23 12:40 | disposition home or self-care (01) ==
LOC: EC 11:53
DX: G62.9 Polyneuropathy, unspecified (principal); Z76.0 Encounter for issue of repeat prescription; Z87.891 Personal history of nicotine dependence; Z88.8 Allergy status to other drugs, medicaments and biological substances; Z98.1 Arthrodesis status
CPT/HCPCS: 99281

== ENCOUNTER → 2021-08-03 | Outpatient (CLI) | payer OTHER ==
--- NOTE | 2021-08-04 17:33 | MR ---
EXAMINATION TYPE: MR lumbar spine wo con DATE OF EXAM: 08/03/2021 COMPARISON: There are no comparison images HISTORY: Pain throughout entire back and down both legs CONTRAST: 0 mL intravenous Gadavist. TECHNIQUE: Multiplanar, multisequence images of the lumbar spine were acquired. FINDINGS: L5-S1: No significant disc bulge or disc herniation. No spinal canal stenosis. No foraminal stenosi s. Some mild disc space narrowing may be present. L4-L5: No significant disc bulge or disc herniation. No spinal canal stenosis. No foraminal stenosi s. Some susceptibility artifact causes limitation foramen evaluation L3-L4: No significant disc bulge or disc herniation. No foraminal stenosis. Susceptibility artifact limits the spinal canal evaluation. Obvious stenosis identified L2-L3: No significant disc bulge or disc herniation. No spinal canal stenosis. No foraminal stenosi s. Susceptibility artifact is present posteriorly. Some limitation at the superior L3 vertebral level evaluation is present. There is some left facet hypertrophy of posterior lateral thecal sac compress ion. A minimal grade 1 spondylolisthesis of L2 on L3 may be present. L1-L2: No significant disc bulge or disc herniation. No spinal canal stenosis. No foraminal stenosi s. Facet hypertrophy and ligamentum flavum laxity is posterior lateral thecal sac compression. T12-L1: No significant disc bulge or disc herniation. No spinal canal stenosis. No foraminal stenos is. Mild facet hypertrophy is present in the posterior lateral thecal sac contact IMPRESSION: 1. Suggestion of minimal grade 1 spondylolisthesis of L2 anterolateral 3. 2. Disc desiccation L2-3 through L4-5. 3. Facet hypertrophy with some posterior lateral thecal sac compression is the L2-3 and to a lesser d egree L1-2 and T12-L1.
== END | disposition home or self-care (01) ==
LOC: RADMRIMAIN 08:42
PROVIDERS: ATTEND Orthopaedic Surgery Orthopaedic Surgery of the Spine
DX: Z48.89 Encounter for other specified surgical aftercare (principal); M51.17 Intervertebral disc disorders with radiculopathy, lumbosacral region; M62.81 Muscle weakness (generalized); M46.1 Sacroiliitis, not elsewhere classified; I10 Essential (primary) hypertension; Z68.26 Body mass index [BMI] 26.0-26.9, adult; Z98.1 Arthrodesis status
CPT/HCPCS: 72148